=== PATIENT | male | born 1955 | race Caucasian/White ===

== ENCOUNTER 2017-10-31 18:59 | Emergency (ER) | payer OTHER, MEDICAID, SELFPAY ==
[2017-10-31 19:17] VITALS: BP 125/84; PULSE 91; RESP 18; TEMP 36.1; O2SAT 95; BMI 29.2
--- NOTE | 2017-10-31 20:04 | PC.NURSE ---
pt left w/o being seen from waiting room per registration
== END 2017-10-31 20:03 | disposition left against medical advice (07) ==
LOC: ED 19:05
PROVIDERS: Family Provider Family Medicine; PCP Family Medicine
DX: T16.9XXA Foreign body in ear, unspecified ear, initial encounter (principal)
CPT/HCPCS: 99281; 99282

== ENCOUNTER 2018-02-08 21:14 | Emergency (ER) | payer OTHER, MEDICAID, SELFPAY ==
[2018-02-08 21:16] VITALS: BP 145/83; PULSE 103; RESP 18; TEMP 37.1; O2SAT 96
== END 2018-02-08 22:03 | disposition left against medical advice (07) ==
PROVIDERS: Family Provider Family Medicine; PCP Family Medicine
DX: M79.645 Pain in left finger(s) (principal)
CPT/HCPCS: 99281; 99282

== ENCOUNTER 2018-02-09 12:36 | Emergency (ER) | payer OTHER, MEDICAID, SELFPAY ==
[2018-02-09 12:46] VITALS: BP 121/74; PULSE 86; RESP 20; TEMP 36.5; O2SAT 96
--- NOTE | 2018-02-09 14:55 | ED_ITS ---
HPI - Extremity Injury (Upper) General Chief Complaint: Extremity Injury, Upper Stated Complaint: LEFT HAND INDEX FINGER SWELLING Time Seen by Provider: 02/09/18 14:52 Source: patient Mode of arrival: ambulatory Limitations: no limitations History of Present Illness HPI narrative: Patient is 62-year-old male here for evaluation of possible infection of his left index finger. Patient states that all the symptoms started approximately 2 weeks ago. He states that it started after he was using the tool that was causing ?rapid movements ?and was resting on his finger. He states that it was not using high-pressure or ill or any other liquid. He states that he thought that it irritated his skin over the area. Has not tried anything for it. No fevers. Did come to the emergency department last evening but left without being seen. Return today for evaluation. Related Data Previous Rx's Medication Instructions Recorded albuterol sulfate [Ventolin HFA] 2 puff INHALATION Q4-6H PRN #6.7 11/01/17 gram sulfamethoxazole-trimethoprim 1 tab PO BID 7 Days #14 tab 02/09/18 Allergies Allergy/AdvReac Type Severity Reaction Status Date / Time No Known Drug Allergies Allergy Verified 10/31/17 19:19 Review of Systems Constitutional Denies fever(s) Musculoskeletal Comments: Swelling and redness and pain to his left index finger Integumentary/Breasts Comments: Swelling to left index finger, area on his left index finger that is white and black Neurologic Comments: Some tingling to the tip of his left index finger Hematologic/Lymphatic Denies easy bleeding and Denies easy bruising PFSH Medical History Renal stones (Acute) Surgical History No pertinent past surgical history (Acute) History of lithotripsy Status post tonsillectomy and adenoidectomy Social History Smoking Status: Former smoker Exam Initial Vital Signs Initial Vital Signs: Vital Signs Temperature 97.7 F 02/09/18 12:46 Pulse Rate 86 02/09/18 12:46 Respiratory Rate 20 02/09/18 12:46 Blood Pressure 121/74 H 02/09/18 12:46 Pulse Oximetry 96 02/09/18 12:46 Const General: cooperative, healthy appearing, comfortable, well developed, well groomed and No acute distress Orientation: alert, awake and oriented x3 Cardio Pulses: radial pulses present on the left Skin Other: Patient with a 1 cm area of white on the volar aspect of his left index finger at the crease of the PIP joint. Does have a small black area in the center of that white area. Does have some surrounding erythema that does not streak up proximal to the PIP joint. Neuro Other: Sensation intact to light touch left index finger distal Extrem Other: Patient with circumferential swelling from the MCP distal of his left index finger. Patient's finger is held in slight flexion however is able to extend without any problems. Flexion is limited somewhat secondary to the swelling. Patient does not have tenderness to palpation along the flexor tendons. Is only minimally tender over the PIP and the IP joints. Psych Appearance: grossly normal and well kempt Procedures Abscess I/D Site: hand (Left index finger) Side (if applicable): left Local Anesthetic: lidocaine 1% Amount of anesthesia used (mL): 2 Technique: incised with #11 blade Amount of fluid expressed (mL): 3 Irrigation: No Packing used?: none Complications: other (None) Course Orders Ordered: ED Orders 02/09/18 14:55 XR finger LT min 2V Stat 02/09/18 14:56 Blood Culture Stat 02/09/18 15:20 Basic Metabolic Panel Stat C-Reactive Protein Quant Stat Complete Blood Count AUTO DIFF Stat Erythrocyte Sedimentation Rate Stat Lactate (Lactic Acid) Stat Discontinued Medications Trimethoprim/Sulfamethoxazole (Bactrim Ds) 1 tab PO NOW ONE Stop: 02/09/18 15:55 Vital Signs - 8 hr 02/09/18 12:46 Temperature 97.7 F Pulse Rate 86 Respiratory Rate 20 Blood Pressure 121/74 H Pulse Oximetry 96 MDM - Extremity Injury (Upper) Lab Data Attestation: I reviewed the patient's lab results. Result diagrams: 02/09/18 15:20 02/09/18 15:20 Lab Results 02/09/18 02/09/18 02/09/18 Range/Units 15:20 15:20 15:20 WBC 9.4 (4.5-11.0) X10^3/uL RBC 4.83 (4.5-5.9) X10^6/uL Hgb 14.7 (13.5-17.5) g/dL Hct 43.3 (41-53) % MCV 89.6 (80-100) fL MCH 30.5 (26-34) PG MCHC 34.0 (30-36) % RDW 13.4 (11.6-14.8) % Plt Count 243 (150-400) X10^3/uL Neut % (Auto) 65.5 (50-75) % Lymph % (Auto) 22.8 L (25-40) % [place] % (Auto) 9.8 (3-14) % Eos % (Auto) 1.1 L (2-4) % Baso % (Auto) 0.8 (0-2) % Neut # (Auto) 6 L (6167-1243) /uL ESR 1 (0-15) MM/HR Sodium 139 (137-145) mmol/L Potassium 4.0 (3.4-5.1) mmol/L Chloride 104 (98-107) mmol/L Carbon Dioxide 26 (22-32) mmol/L BUN 24 H (9-20) mg/dL Creatinine 0.90 (0.66-1.25) mg/dL Estimated GFR > 60.0 (>60) mL/min BUN/Creatinine Ratio 26.7 H (6-22) Glucose 89 (80-110) mg/dL Lactate 0.6 L (0.7-2.1) mmol/L Calcium 9.1 (8.4-10.2) mg/dL C-Reactive Protein 0.9 (<1.0) mg/dL Imaging Data Xray finger: Radiologist's impression: PROCEDURE: XR FINGER LT MIN 2V INDICATIONS: Left index finger swelling after trauma TECHNIQUE: AP hand, 2 views of the index finger(s) acquired. COMPARISON: None. FINDINGS: Bones: Osteoarthritic changes are noted in second PIP and DIP joints. No gross acute fracture or dislocation is seen. No gross bone erosive changes are noted. Soft tissues: Soft tissue swelling around second PIP joint the IP joints are seen. IMPRESSION: No evidence of acute secondary to fracture or dislocation. Soft tissue swelling around second digit. Second PIP and DIP joint osteoarthritis. Dictated by: Uri Hussein M.D. on 02/09/2018 at 15:13 Approved by: Uri Hussein M.D. on 02/09/2018 at 15:15 MDM Narrative Medical decision making narrative: Patient looks very well. Does have circumferential swelling and finger held in slight flexion however does not have other signs of flexor tenosynovitis. ESR CRP and white blood cell count normal. Patient is neurovascularly intact. I was able to express a fair amount of purulent material from the white area on the volar aspect overlying the crease of the DIPJ joint. Patient was given a dose of Bactrim here in the ER. Will send home with a prescription for this medication. He was given return precautions. He expressed understanding and agreement with plan. Discharge Plan Departure Patient Disposition: Home, Self-Care Clinical Impression: Abscess Instructions: DI for Incision and Drainage of a Skin Abscess Activity Restrictions/Additional Instructions: You can shower like normal and wash your hands with soap and water. Take the antibiotics as directed call your primary care doctor for a follow-up. Return to the emergency department for any new symptoms, worsening pain, redness that it starts to extend at her hand, or any other new or concerning symptoms Prescriptions: New sulfamethoxazole-trimethoprim 800-160 mg tablet 1 tab PO BID 7 Days Qty: 14 RF: 0 No Action albuterol sulfate [Ventolin HFA] 90 mcg/actuation HFA aerosol inhaler 2 puff INHALATION Q4-6H PRN (Reason: shortness of breath or wheezing) Qty: 6.7 RF: 0
[2018-02-09 15:31] LABS: Hematocrit 43.3 % (41-53); Hemoglobin 14.7 g/dL (13.5-17.5); Mean Corpuscular Hemoglobin 30.5 PG (26-34); Mean Corpuscular Volume 89.6 fL (80-100); Red Blood Cell Count 4.83 X10^6/uL (4.5-5.9); White Blood Cell Count 9.4 X10^3/uL (4.5-11.0)
[2018-02-09 15:32] LABS: Add Manual Diff / Slide Review NO; Basophils Percent Auto 0.8 % (0-2); Eosinophils Percent Auto 1.1 % (2-4); Lymphocytes Percent Auto 22.8 % (25-40); Monocytes Percent Auto 9.8 % (3-14); Neutrophils Absolute Auto 6 /uL (3000-5900); Neutrophils Percent Auto 65.5 % (50-75); Platelet Count 243 X10^3/uL (150-400); Red Cell Distribution Width 13.4 % (11.6-14.8)
[2018-02-09 15:45] LABS: Lactate (Lactic Acid) 0.6 mmol/L (0.7-2.1)
[2018-02-09 15:49] LABS: BUN Creatinine Ratio 26.7 (6-22); Blood Urea Nitrogen 24 mg/dL (9-20); C-Reactive Protein Quant 0.9 mg/dL (<1.0); Calcium 9.1 mg/dL (8.4-10.2); Carbon Dioxide 26 mmol/L (22-32); Chloride 104 mmol/L (98-107); Estimated Glomerular Filt Rate > 60.0 mL/min (>60); Glucose 89 mg/dL (80-110); HEMOLYSIS < 15 (0-50); Sodium 139 mmol/L (137-145)
[2018-02-09 15:50] LABS: Erythrocyte Sedimentation Rate 1 MM/HR (0-15)
[2018-02-09 16:11] VITALS: BP 131/79; PULSE 67; RESP 18; O2SAT 98
[2018-02-09] MEDS: SULFA/TRIMETH 800/160 (DS) TABLET 1 TAB PO (16:13)
== END 2018-02-09 16:34 | disposition home or self-care (01) ==
PROVIDERS: Emergency Provider Emergency Medicine; Family Provider Family Medicine; PCP Family Medicine
DX: L02.512 Cutaneous abscess of left hand (principal)
CPT/HCPCS: 10060; 36415; 36591; 73140; 80048; 83605; 85025; 85651; 86140; 87040; 99282; 99284

== ENCOUNTER 2018-07-13 00:37 | Emergency (ER) | payer OTHER, MEDICAID, SELFPAY ==
--- NOTE | 2018-07-13 00:39 | DI.RAD.S_ITS ---
PROCEDURE: XR CHEST 1V INDICATIONS: chest pain TECHNIQUE: One view of the chest was acquired. COMPARISON: [facility], CHEST 2 VIEW, 08/22/2017, 17:58. [facility], CHEST 2 VIEW, 12/21/2016, 21:22. FINDINGS: Surgical changes and devices: None. Lungs and pleura: No pleural effusions or pneumothorax. Lungs are clear. Mediastinum: Mediastinal contours appear normal. Heart size is normal. Bones and chest wall: No suspicious bony lesions. Overlying soft tissues appear unremarkable. IMPRESSION: Normal for age, source of current chest pain symptoms is not seen. Dictated by: Prabhjot Galan M.D. on 07/13/2018 at 8:36 Approved by: Prabhjot Galan M.D. on 07/13/2018 at 8:37
--- NOTE | 2018-07-13 00:41 | ED_ITS ---
HPI - Chest Pain General Chief Complaint: Chest Pain Stated Complaint: woke with chest/back pain Time Seen by Provider: 07/13/18 00:38 Source: patient Mode of arrival: ambulatory Limitations: no limitations History of Present Illness HPI narrative: 63-year-old male here for evaluation of chest and back pain. He states that he woke up with pain in his back. Describes it as a sharp pain. No cough. No fevers. States that it is positional. It is worse when he lays on 1 side and better when he lays on the other. No trauma. He did state that he started to not feel very well after he moved piece of wood yesterday. He was concerned that potentially he had a broken rib. Related Data Previous Rx's Medication Instructions Recorded albuterol sulfate [Ventolin HFA] 2 puff INHALATION Q4-6H PRN #6.7 11/01/17 gram azithromycin 250 mg PO DAILY 4 Days #4 tab 07/13/18 Allergies Allergy/AdvReac Type Severity Reaction Status Date / Time No Known Drug Allergies Allergy Verified 10/31/17 19:19 Review of Systems Constitutional Denies fever(s) and Denies headache(s) ENT Ears, Nose, Mouth, and Throat: Denies dizziness and Denies headache(s) Cardiovascular Reports chest pain, Denies edema, Denies palpitations and Denies dyspnea Respiratory Denies dyspnea Gastrointestinal Gastrointestinal: Denies abdominal pain, Denies nausea and Denies vomiting Musculoskeletal Reports back pain, Denies myalgias and Denies arthralgias Integumentary/Breasts Denies rash Neurologic Denies confusion, Denies dizziness and Denies headache(s) Psychiatric Denies confusion Endocrine Denies palpitations Hematologic/Lymphatic Denies easy bleeding and Denies easy bruising [facility] Social History Smoking Status: Former smoker Exam Initial Vital Signs Initial Vital Signs: Vital Signs Temperature 100.6 F H 07/13/18 00:47 Pulse Rate 104 H 07/13/18 00:47 Respiratory Rate 21 07/13/18 00:47 Blood Pressure 154/87 H 07/13/18 00:47 Pulse Oximetry 93 07/13/18 00:47 Const General: cooperative, healthy appearing, well developed, well groomed and No acute distress Orientation: alert, awake and oriented x3 HENMT Head: normal to inspection and normocephalic Resp Effort & Inspection: normal respiratory effort Auscultation: clear to auscultation bilaterally Cardio Rate: tachycardic Rhythm: regular rhythm Pulses: radial pulses present Back/Spine/Pelvis Back: No CVA tenderness Cervical Spine: No cervical spinal tenderness Thoracic/Lumbar Spine: No thoraco-lumbar spasm, thoracic spinal tenderness and No lumbar spinal tenderness Skin Lesions: no lesions Rashes: no rashes Neuro General: alert, awake and oriented x3 Extrem General: normal to inspection and capillary refill normal Psych Appearance: grossly normal and well kempt Course Orders Ordered: ED Orders 07/13/18 00:39 XR chest 1V Stat 07/13/18 00:40 EKG-12 Lead Stat 07/13/18 00:55 B Type Natriuretic Peptide Stat Basic Metabolic Panel Stat Complete Blood Count AUTO DIFF Stat Partial Thromboplastin Time Stat Prothrombin Time INR Stat Troponin I Stat 07/13/18 01:02 CT angio chest abdomen Stat Discontinued Medications Aspirin (Aspirin Chew) 324 mg PO NOW ONE Stop: 07/13/18 00:39 Last Admin: 07/13/18 01:02 Dose: 324 mg Azithromycin (Zithromax) 500 mg PO NOW ONE Stop: 07/13/18 02:32 Last Admin: 07/13/18 02:43 Dose: 500 mg Sodium Chloride (Normal Saline 0.9%) 1,000 mls @ 1,000 mls/hr IV BOLUS ONE Stop: 07/13/18 01:54 Last Infusion: 07/13/18 02:10 Dose: 0 mls/hr Admin: 07/13/18 01:01 Dose: 1,000 mls/hr Morphine Sulfate (Morphine) 4 mg IV NOW ONE Stop: 07/13/18 00:54 Last Admin: 07/13/18 01:37 Dose: 4 mg Vital Signs - 8 hr 07/13/18 00:47 07/13/18 00:50 07/13/18 01:52 Temperature 100.6 F H Pulse Rate 104 H 91 H Respiratory Rate 21 27 H Blood Pressure 154/87 H Blood Pressure [Right Arm] 125/74 105/74 Pulse Oximetry 93 93 07/13/18 03:05 07/13/18 05:41 Temperature Pulse Rate 89 86 Respiratory Rate 22 Blood Pressure Blood Pressure [Right Arm] 129/70 Pulse Oximetry 94 95 MDM - Chest Pain Lab Data Attestation: I reviewed the patient's lab results. Result diagrams: 07/13/18 00:55 07/13/18 00:55 Lab Results 07/13/18 07/13/18 07/13/18 Range/Units 00:55 00:55 00:55 WBC 18.3 H (4.5-11.0) X10^3/uL RBC 4.69 (4.5-5.9) X10^6/uL Hgb 13.9 (13.5-17.5) g/dL Hct 42.1 (41-53) % MCV 89.7 (80-100) fL MCH 29.6 (26-34) PG MCHC 33.0 (30-36) % RDW 13.3 (11.6-14.8) % Plt Count 262 (150-400) X10^3/uL Neut % (Auto) 85.1 H (50-75) % Lymph % (Auto) 6.2 L (25-40) % [place] % (Auto) 8.0 (3-14) % Eos % (Auto) 0.2 L (2-4) % Baso % (Auto) 0.5 (0-2) % Neut # (Auto) 57584 H (2100-7011) /uL Lymph # (Auto) 1100 (2482-5797) /uL [place] # (Auto) 1500 H (0-900) /uL Eos # (Auto) 0 (0-450) /uL Baso # (Auto) 100 (0-100) /uL PT 13.4 H (10.1-12.7) SECONDS INR 1.2 (0.9-1.3) APTT 35 (26.4-36.2) SECONDS Sodium 140 (137-145) mmol/L Potassium 4.0 (3.4-5.1) mmol/L Chloride 102 (98-107) mmol/L Carbon Dioxide 28 (22-32) mmol/L BUN 20 (9-20) mg/dL Creatinine 1.00 (0.66-1.25) mg/dL Estimated GFR > 60.0 (>60) mL/min BUN/Creatinine Ratio 20.0 (6-22) Glucose 111 H (80-110) mg/dL Calcium 9.5 (8.4-10.2) mg/dL Troponin I < 0.012 (0.01-0.034) ng/mL B-Natriuretic Peptide < 100 (<100) Imaging Data CT angio chest abdomen: Radiologist's impression: CT scan of chest: No thoracic aortic aneurysm or dissection. No pneumothorax. Moderate infiltrate medial left lower no. Mild infiltrate right lower lobe. Mild peribronchial cuffing both lower lobes which can be seen with bronchitis or bronchiectasis. 4 mm pulmonary nodule posterior left upper lobe along the left major fissure image 25. Comparison any prior studies are follow-up recommended. CTA abdomen: No abdominal aortic aneurysm or dissection. Diverticulosis. No diverticulitis in visualized colon. 1.5 cm left adrenal mass. Comparison any prior studies follow-up recommended. ECG Data Attestation: I personally reviewed and interpreted this ECG as follows: Prior ECG tracings: not available for review Interpretation: Sinus rhythm Ventricular rate of 95 Normal axis Normal QRS Normal QTC No ST T wave changes MDM Narrative Medical decision making narrative: Patient not hypoxic. Does have a leukocytosis and CT scan findings concerning for pneumonia. He was given his 1st dose of antibiotics here in the emergency department. No signs of dissection. EKG is unremarkable. Troponin is negative. Given the CT scan finding for pneumonia and his leukocytosis I do suspect that this is the cause of his symptoms. When I informed him of the diagnosis he stated that he has not been feeling well for the past couple days. He was informed of the incidental findings of the lung nodule in the adrenal mass. He is informed that he needed to follow up with his primary care doctor regarding that. He was given pain medication here in the emergency department. Discharge Plan Departure Patient Disposition: Home Clinical Impression: Pneumonia, Incidental lung nodule, Adrenal mass, left Instructions: DI for Pneumonia -- Adult Activity Restrictions/Additional Instructions: When we did the CT scan today we have incidental findings of a lung nodule. It was 4 mm in size and located in the upper lobe of the left lung. Was also an incidental 1.5 cm left adrenal mass. Both of these findings are more than likely not connected with what brought you in to the emergency department however they do need follow-up. I would recommend you contact your primary care doctor for these. You do need to take all of your antibiotics as directed. Return to the emergency department for any new or worsening symptoms. You were given your 1st dose of antibiotics here in the emergency department. Fill this prescription and start taking them on Thursday07/14/18 Prescriptions: New azithromycin 250 mg tablet 250 mg PO DAILY 4 Days Qty: 4 RF: 0 No Action albuterol sulfate [Ventolin HFA] 90 mcg/actuation HFA aerosol inhaler 2 puff INHALATION Q4-6H PRN (Reason: shortness of breath or wheezing) Qty: 6.7 RF: 0
[2018-07-13 00:47] VITALS: BP 154/87; PULSE 104; RESP 21; TEMP 38.1; O2SAT 93; BMI 26.5
[2018-07-13 00:50] VITALS: BP 125/74
[2018-07-13] MEDS: SODIUM CHLORIDE 0.9% 1,000 ML 1000 ML IV (01:01)
[2018-07-13] MEDS: ASPIRIN 81 MG TAB 324 MG PO (01:02)
--- NOTE | 2018-07-13 01:02 | DI.CT.S_ITS ---
PROCEDURE: CT ANGIO CHEST ABDOMEN INDICATIONS: chest and back pain TECHNIQUE: Precontrast 5 mm thick sections acquired from the lung apices to the iliac crests. After the administration of intravenous contrast, 2.5 mm thick sections again acquired from the lung apices to the iliac crests. 10 mm maximum intensity projection (MIP) oblique sagittal and coronal reformats were then acquired. For radiation dose reduction, the following was used: automated exposure control. COMPARISON: [facility], CT, ABDOMEN/PELVIS WITH CONTRAST, 02/14/2013, 2:15. [facility], CR, XR CHEST 1V, 07/13/2018, 1:04. [facility], CR, CHEST 2 VIEW, 08/22/2017, 17:58. FINDINGS: Image quality: Excellent. AORTA: Intramural hematoma: Absent Maximum hematoma thickness: Not applicable Focal contrast enhancement: Intramural blood pool (< 2 mm neck or imperceptible communication with aortic lumen): Absent. Ulcer-like projection (broad communication with aortic lumen > 3 mm): Absent. Dissection: Absent Shahzad classification: Applicable Maximum aortic diameter: Normal. Periaortic hematoma: Absent. CHEST: Lungs and pleura: Pneumonia pattern medially behind the left hilum. Mild patchy pneumonia pattern right lower lobe. 8mm nodule near the area of pneumonia posterolateral right lower lobe seen on series 5 image 70. Incidental note also is made of a 4 mm nodule at the posterior border of the left upper lobe abutting the highest margin of the major fissure. No pleural effusions or pneumothorax. Central and peripheral airways are patent and normal in caliber. Mediastinum: Heart size is normal. No pericardial effusion. No mediastinal or hilar adenopathy by size criteria. Central pulmonary arteries are normal in size. Esophagus is normal in caliber. No hiatal hernias. Bones and chest wall: No axillary adenopathy by size criteria. Thyroid gland appears normal where well visualized. No suspicious bony lesions. No vertebral body compression fractures. ABDOMEN: Vasculature: Celiac trunk and mesenteric arteries are patent. Renal arteries are also patent. Solid organs: Liver is normal in size and enhancement. Gallbladder is partially contracted. Biliary system is non dilated. Pancreas enhances normally. Spleen is normal in size and enhancement. No adrenal nodules on the right but there is a 1.1 x 1.5 cm left adrenal nodule that is low in radiodensity, measuring approximately 20 Hounsfield units. Both kidneys are normal in size and enhancement, without hydronephrosis. Peritoneum and bowel: No free fluid or air. Bowel loops are normal in caliber and wall thickness. Nodes and vessels: No retroperitoneal or mesenteric adenopathy by size criteria. Inferior vena cava is normal in morphology. Bones: No suspicious bony lesions. No vertebral body compression fractures. Miscellaneous: No ventral hernias. IMPRESSION: 1. Pneumonia behind the left hilum. 2. Mild patchy pneumonia right lower lobe. 3. 2 lung nodules are found, 1 within the left upper lobe abutting the major fissure along its anterior border. The second is larger, right lower lobe, and measures up to 8 mm. These lesions can be further assessed in [address] scanning (lung nodule followup protocol). 4. Small left adrenal nodule, relatively low in radiodensity. This structure can be further assessed by the recommended followup chest CT scanning in 6 months. This adrenal nodule can be seen unchanged from the comparison study 02/14/13 and therefore is considered benign in origin. 5. No sign of aneurysm or dissection. Dictated by: Prabhjot Galan M.D. on 07/13/2018 at 9:21 Approved by: Prabhjot Galan M.D. on 07/13/2018 at 9:33
[2018-07-13 01:04] LABS: Add Manual Diff / Slide Review NO; Basophils Absolute Auto 100 /uL (0-100); Basophils Percent Auto 0.5 % (0-2); Eosinophils Absolute Auto 0 /uL (0-450); Eosinophils Percent Auto 0.2 % (2-4); Hematocrit 42.1 % (41-53); Hemoglobin 13.9 g/dL (13.5-17.5); Lymphocytes Absolute Auto 1100 /uL (1100-4500); Lymphocytes Percent Auto 6.2 % (25-40); Mean Corpuscular Hemoglobin 29.6 PG (26-34); Mean Corpuscular Volume 89.7 fL (80-100); Monocytes Absolute Auto 1500 /uL (0-900); Neutrophils Absolute Auto 15600 /uL (1500-7000); Neutrophils Percent Auto 85.1 % (50-75); Platelet Count 262 X10^3/uL (150-400); Red Blood Cell Count 4.69 X10^6/uL (4.5-5.9); Red Cell Distribution Width 13.3 % (11.6-14.8); White Blood Cell Count 18.3 X10^3/uL (4.5-11.0)
[2018-07-13 01:06] LABS: INR 1.2 (0.9-1.3); Prothrombin Time 13.4 SECONDS (10.1-12.7)
[2018-07-13 01:09] LABS: PTT Partial Thromboplastin Tim 35 SECONDS (26.4-36.2)
[2018-07-13 01:11] LABS: Blood Urea Nitrogen 20 mg/dL (9-20); Calcium 9.5 mg/dL (8.4-10.2); Carbon Dioxide 28 mmol/L (22-32); Chloride 102 mmol/L (98-107); Estimated Glomerular Filt Rate > 60.0 mL/min (>60); Glucose 111 mg/dL (80-110); HEMOLYSIS < 15 (0-50); Sodium 140 mmol/L (137-145)
[2018-07-13 01:26] LABS: B Type Natriuretic Peptide < 100 (<100); Troponin I < 0.012 ng/mL (0.01-0.034)
[2018-07-13] MEDS: MORPHINE 4 MG/ML INJ IV (01:37)
[2018-07-13 01:52] VITALS: BP 105/74; PULSE 91; RESP 27; O2SAT 93
[2018-07-13] MEDS: AZITHROMYCIN 250 MG TABLET 500 MG PO (02:43)
[2018-07-13 03:05] VITALS: BP 129/70; PULSE 89; RESP 22; O2SAT 94
[2018-07-13 05:41] VITALS: PULSE 86; O2SAT 95
--- NOTE | 2018-07-13 05:42 | PC.NURSE ---
Pt is being allowd to sleep and stay in room because he had morphine and no ride home. During sleep pt is very restless, calling out, flailing around, kicking, swearing, tossing and turning. he reports PTSD. He was getting tangled up in monitor wires. Provider ok'd removing all monitor leads except pulse ox.
--- NOTE | 2018-07-13 05:45 | PC.NURSE ---
Pt awoke and ambulated self to restroom. steady gate.
[2018-07-13 06:33] VITALS: BP 129/82; PULSE 91; RESP 21; O2SAT 94
== END 2018-07-13 06:35 | disposition home or self-care (01) ==
PROVIDERS: Emergency Provider Emergency Medicine; Family Provider Family Medicine; PCP Family Medicine
DX: J18.9 Pneumonia, unspecified organism (principal); R91.1 Solitary pulmonary nodule; E27.9 Disorder of adrenal gland, unspecified
CPT/HCPCS: 36591; 71045; 71275; 74175; 80048; 83880; 84484; 85025; 85610; 85730; 93005; 93010; 96361; 96374; 99283; 99285; J2270; Q9967

== ENCOUNTER 2019-11-10 13:52 | Emergency (ER) | payer OTHER, MEDICAID, SELFPAY ==
[2019-11-10 13:53] VITALS: BP 164/97; PULSE 80; RESP 15; TEMP 36.1; O2SAT 96; BMI 30.1
--- NOTE | 2019-11-10 14:01 | DI.RAD.S_ITS ---
PROCEDURE: XR LUMBAR SPINE 2-3V INDICATIONS: severe radicular pain TECHNIQUE: 3 views of the lumbar spine were acquired. COMPARISON: None. FINDINGS: Bones: 5 [id number] vertebrae are present. There is normal bony alignment. No vertebral body compression fractures. No suspicious bony lesions. Moderate disc and foraminal narrowing are noted at L5-S1. Soft tissues: Overlying bowel gas pattern is normal. No suspicious soft tissue calcifications. IMPRESSION: Degenerative changes most notable at L5-S1. Dictated by: Roslyn Meneses M.D. on 11/10/2019 at 14:33 Approved by: Roslyn Meneses M.D. on 11/10/2019 at 14:34
--- NOTE | 2019-11-10 14:01 | DI.RAD.S_ITS ---
PROCEDURE: XR HIP W PEL IF DONE RT 2V INDICATIONS: severe pain, no new injury TECHNIQUE: AP pelvis with lateral view(s) of the right hip(s). COMPARISON: [facility], CT, ABDOMEN/PELVIS WITH CONTRAST, 02/14/2013, 2:15. [facility], CR, KUB XRAY (1 VIEW ABDOMEN), 02/21/2013, 22:23. FINDINGS: Bones: No fractures or dislocations. Pelvic ring appears intact. No suspicious bony lesions. Minimal mild bilateral degenerative hip joint space narrowing. Soft tissues: The visualized bowel gas pattern is normal. No suspicious soft tissue calcifications. IMPRESSION: Minimal to mild degenerative changes. No visualized acute fracture or dislocation. However, if clinical concern and/or pain persist, short interval imaging followup in 7-10 days is recommended, as occult injury cannot be definitively excluded. Dictated by: Roslyn Meneses M.D. on 11/10/2019 at 14:33 Approved by: Roslyn Meneses M.D. on 11/10/2019 at 14:33
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
== END 2019-11-10 14:58 | disposition home or self-care (01) ==
PROVIDERS: Emergency Provider Emergency Medicine; Family Provider Family Medicine; PCP Family Medicine
DX: M54.16 Radiculopathy, lumbar region (principal)
CPT/HCPCS: 72100; 73502; 99283

== ENCOUNTER 2020-02-19 05:14 | Emergency (ER) | payer OTHER, MEDICAID, SELFPAY ==
[2020-02-19 07:01] VITALS: O2SAT 95
[2020-02-19 07:02] VITALS: BP 118/79; PULSE 82; O2SAT 95
[2020-02-19 07:05] VITALS: BP 118/79; PULSE 85; RESP 20; TEMP 36.5; O2SAT 96
--- NOTE | 2020-02-19 07:13 | ED.EXTPRO ---
HPI - Extremity Problem General Chief complaint: Extremity Problem,Nontraumatic Stated complaint: left elbow is swollen/painful Time Seen by Provider: 02/19/20 06:59 Source: patient Mode of arrival: Ambulatory Limitations: no limitations History of Present Illness HPI Narrative: Patient is a 64-year-old male who presents with left elbow swelling and redness. It has been ongoing for the last 4 days he thinks maybe it got stuck by a thorn. He is afebrile but it is quite swollen and red. Complaint: joint swelling Location: left and elbow Related Data Previous Rx's Medication Instructions Recorded albuterol sulfate [Ventolin HFA] 2 puff INHALATION Q4-6H PRN #6.7 11/01/17 gram cyclobenzaprine 10 mg PO TID PRN #14 tab 11/10/19 ketorolac 10 mg PO Q6H PRN #14 tab 11/10/19 prednisone 20 mg PO DAILY #5 tab 11/10/19 cephalexin [Keflex] 500 mg PO TID #21 cap 02/19/20 Allergies Allergy/AdvReac Type Severity Reaction Status Date / Time No Known Drug Allergies Allergy Verified 11/10/19 13:57 Review of Systems Review of Systems Narrative: GENERAL: Denies chills,fever HEENT: Denies throat pain RESPIRATORY: Denies dyspnea, cough, wheezing CARDIOVASCULAR: Denies chest pain, palpitations GASTROINTESTINAL: Denies nausea, vomiting MUSCULOSKELETAL: Denies extremity pain, injury SKIN: See HPI NEUROLOGIC: Denies weakness, dizziness, headache, numbness 8 point review of systems is negative except for those stated above and HPI Patient History Medical History Renal stones (Acute) Surgical History History of lithotripsy No pertinent past surgical history (Acute) Status post tonsillectomy and adenoidectomy Social History Smoking Status: Former smoker Smoking Status: Former smoker alcohol intake frequency: holidays/special occasions only Substance Use Type: does not use Exam Initial Vital Signs Initial Vital Signs: Vital Signs Pulse Oximetry 95 02/19/20 07:01 GENERAL: Well-appearing, well-nourished and in no acute distress. CARDIOVASCULAR: peripheral pulses in tact, cap refill <2 sec RESPIRATORY: No respiratory distress, speaks in full sentences without difficulty EXTREMITIES: Normal range of motion, no clubbing or edema. Neurovascularly intact Left elbow swelling and erythema no streaking NEUROLOGICAL: Cranial nerves II through XII grossly intact. Normal gait and speech. SKIN: Warm, dry, no petechiae, no rashes or lesions. Procedures Bursa Procedure Time Out Performed: Yes Side of body: left Site of Procedure: olecranon bursa XRAY Obtained: none Antisepsis Used: Chlorhexidine Local Anesthetic: lidocaine 1% and with epi Amount of anesthesia used (mL): 5 Fluid obtained (mL): 2 Fluid Type: bloody Patient Tolerated Procedure: Well Complications: none Course Orders Ordered: ED Orders 02/19/20 08:03 Body Fluid Culture Stat Discontinued Medications Lidocaine/Epinephrine (Xylocaine 1% W/Epi) 1 ml SUBCUT NOW ONE Stop: 02/19/20 07:14 Last Admin: 02/19/20 07:44 Dose: 1 ml Documented by: BTONER Vital Signs Vital signs: Vital Signs - 8 hr 02/19/20 07:01 02/19/20 07:02 02/19/20 07:05 Temperature 97.7 F Pulse Rate 82 85 Respiratory Rate 20 Blood Pressure 118/79 118/79 Pulse Oximetry 95 95 96 02/19/20 07:30 02/19/20 08:35 Temperature Pulse Rate 73 80 Respiratory Rate 18 Blood Pressure 130/78 Pulse Oximetry 97 96 MDM - Extremity (Nontraumatic) MDM Narrative Medical decision making narrative: It does appear to be more of a bursitis although it is erythematous clear fluid was drained and sent to lab for culture. He is started on antibiotics he thinks maybe was pricked by a thorn. No concern for septic joint at this time Discharge Plan Departure Patient Disposition: Home Clinical Impression: Bursitis of left elbow Qualifiers: Elbow bursitis location: olecranon bursitis Qualified Code(s): M70.22 - Olecranon bursitis, left elbow Discharge Date/Time: 02/19/20 08:35 Instructions: Bursitis Activity Restrictions/Additional Instructions: *You have been diagnosed with left elbow bursitis *What to do: This should start to improve over the next few days. Please monitor for any worsening redness *Continue to take medications as directed--> SENT TO [facility] [place] Ibuprofen 600mg every 6 hours if needed for pain Keflex 500 mg 3 times a day for 1 week *Follow up with your primary care provider in 2-3 days *Return to ER if you should have increasing redness inability to move elbow, numbness tingling in hands or any new, worsening or concerning symptoms Prescriptions: New cephalexin [Keflex] 500 mg capsule 500 mg PO TID Qty: 21 RF: 0 No Action albuterol sulfate [Ventolin HFA] 90 mcg/actuation HFA aerosol inhaler 2 puff INHALATION Q4-6H PRN (Reason: shortness of breath or wheezing) Qty: 6.7 RF: 0 cyclobenzaprine 10 mg tablet 10 mg PO TID PRN (Reason: muscle spasm) Qty: 14 RF: 0 prednisone 20 mg tablet 20 mg PO DAILY Qty: 5 RF: 0 ketorolac 10 mg tablet 10 mg PO Q6H PRN (Reason: pain) Qty: 14 RF: 0 Referrals: Jina Mock DO [Primary Care Provider] -
[2020-02-19 07:30] VITALS: PULSE 73; O2SAT 97
[2020-02-19] MEDS: LIDOCAINE 1% W/EPI 1 ML SUBCUT (07:44)
[2020-02-19 08:35] VITALS: BP 130/78; PULSE 80; RESP 18; O2SAT 96
== END 2020-02-19 08:35 | disposition home or self-care (01) ==
PROVIDERS: Emergency Provider Emergency Medicine; Family Provider Family Medicine; PCP Family Medicine
DX: M70.22 Olecranon bursitis, left elbow (principal)
CPT/HCPCS: 20610; 87070; 87075; 87077; 87147; 87186; 87205; 99282; 99283

== ENCOUNTER → 2020-04-09 14:46 | Outpatient (CLI) | payer OTHER, MEDICAID, SELFPAY ==
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
== END ==
PROVIDERS: Family Provider Family Medicine; PCP Family Medicine; Referring Provider Family Medicine; Visit Provider Family Medicine
DX: M79.604 Pain in right leg (principal); M25.551 Pain in right hip; M16.0 Bilateral primary osteoarthritis of hip
CPT/HCPCS: 73502; 73590

== ENCOUNTER → 2020-04-10 10:00 | Outpatient (CLI) | payer OTHER, MEDICAID, SELFPAY ==
[2020-04-10 11:49] LABS: Hemoglobin A1C% w Est Avg Glu 5.4 % (4.0-6.0)
[2020-04-10 11:55] LABS: Cholesterol 173 mg/dL (140-199); HDL Cholesterol 46 mg/dL (40-60); LDL Cholesterol Calculated 115 mg/dL (<100); Triglycerides 62 mg/dL (35-150)
== END ==
PROVIDERS: Family Provider Family Medicine; PCP Family Medicine; Referring Provider Family Medicine; Visit Provider Family Medicine
DX: E78.5 Hyperlipidemia, unspecified (principal)
CPT/HCPCS: 36415; 80061; 83036

== ENCOUNTER → 2020-04-13 08:49 | Outpatient (CLI) | payer OTHER, MEDICAID, SELFPAY ==
--- NOTE | 2020-04-13 08:50 | DI.RAD.S_ITS ---
PROCEDURE: XR LUMBAR SPINE 2-3V INDICATIONS: LOW BACK PAIN WITH SCIATICA TECHNIQUE: 3 views of the lumbar spine were acquired. COMPARISON: [facility], CR, XR LUMBAR SPINE 2-3V, 11/10/2019, 13:58. FINDINGS: Bones: 5 [id number] vertebrae are present. There is normal bony alignment. Loss of height noted in the L1 vertebral body compatible with compression fracture of indeterminate age. L1 compression fracture has occurred in the interval since prior study 10 in November 10, 2019. L1 compression fracture results in approximately 20% loss of normal vertebral body height. No suspicious bony lesions. Mild to moderate L4-L5 and L5-S1 degenerative disc disease. Mild L1-L2, L2-L3 and L3-L4 degenerative disc disease. Mild L4-L5 and L5-S1 facet arthropathy. Soft tissues: Overlying bowel gas pattern is normal. No suspicious soft tissue calcifications. IMPRESSION: 1. L1 compression fracture of indeterminate age. 2. Multilevel degenerate disease. 3. Multilevel facet arthropathy. Dictated by: Shanique Fuller MD, PhD on 04/13/2020 at 8:45 Approved by: hSanique Fuller MD, PhD on 04/13/2020 at 8:48
== END ==
PROVIDERS: Family Provider Family Medicine; PCP Family Medicine; Referring Provider Family Medicine; Visit Provider Family Medicine
DX: M51.16 Intervertebral disc disorders with radiculopathy, lumbar region (principal); M47.26 Other spondylosis with radiculopathy, lumbar region; M48.56XA Collapsed vertebra, not elsewhere classified, lumbar region, initial encounter for fracture
CPT/HCPCS: 72100

== ENCOUNTER 2020-04-30 14:12 | Emergency (ER) | payer OTHER, MEDICAID, SELFPAY ==
[2020-04-30 14:17] VITALS: BP 135/82; PULSE 96; RESP 22; TEMP 36.9; O2SAT 97
--- NOTE | 2020-04-30 16:16 | ED.SKABFB ---
HPI - Skin/Abscess/Foreign Bdy <ALEX Boone - Last Filed: 04/30/20 23:25> General Chief complaint: Skin/Abscess/Foreign Body Stated complaint: Bump/Infection On Left Elbow Time Seen by Provider: 04/30/20 15:55 Source: patient Mode of arrival: Ambulatory Limitations: no limitations History of Present Illness HPI narrative: This is a 65-year-old male, formal smoker, who presents to ED with left elbow, non dominant arm, swelling and discomfort for months. Patient denies fever, chills, nausea or vomiting. He was evaluated 2 months ago with similar symptoms and had drained synovial fluid from the elbow which showed Staphylococcus Aureus growth after his elbow was injured possibly from a thorn. Patient could not recall injuries or trauma this time but states his had swinging hammer. He works as a project construction assistant manager. Patient reports pain slightly radiated down to distal forearm. Patient denies drainage from the site. Patient had not followed up with orthopedic clinic as instructed from last visit. Related Data Previous Rx's Medication Instructions Recorded albuterol sulfate [Ventolin HFA] 2 puff INHALATION Q4-6H PRN #6.7 11/01/17 gram diclofenac sodium 1 % topical gel 2 gram TOP QID #100 gram 04/13/20 ketorolac 10 mg PO Q8H PRN #20 tab 04/30/20 gabapentin 100 mg capsule See Rx Instructions .ROUTE 05/04/20 .COMPLEX #60 cap Allergies Allergy/AdvReac Type Severity Reaction Status Date / Time No Known Drug Allergies Allergy Verified 04/09/20 14:12 Review of Systems <ALEX Boone - Last Filed: 04/30/20 23:25> Review of Systems Narrative: General: Denies fever, chills, fatigue, malaise, sweats. Respiratory: Denies dyspnea, cough, wheezing, hemoptysis, sputum. Cardiovascular: Denies chest pain, palpitations, orthopnea, edema. Gastrointestinal: Denies nausea, vomiting, abdominal pain, diarrhea, constipation, melena. Musculoskeletal: See HPI Skin: See HPI Neurologic: Denies weakness, headache, numbness, change in speech, confusion, seizures, incoordination. Patient History <ALEX Boone - Last Filed: 04/30/20 23:25> Medical History (Updated 04/30/20 @ 16:13 by ALEX Boone) Low back pain with sciatica (Chronic) Olecranon bursitis, left elbow (Chronic) Renal stones (Acute) Right hip pain (Acute) Right leg pain (Acute) Surgical History History of lithotripsy No pertinent past surgical history (Acute) Status post tonsillectomy and adenoidectomy Social History Smoking Status: Former smoker Smoking Status: Former smoker alcohol intake frequency: holidays/special occasions only Substance Use Type: does not use Exam <ALEX Boone - Last Filed: 04/30/20 23:25> Narrative Exam Narrative: General appearance: well developed, well nourished, in no acute distress. Head: normocephalic, atraumatic, no scalp lesions, non-tender. ENT: Hearing grossly intact. Airway patent. Neck/Thyroid: neck supple, full range of motion, no visible masses or meningeal signs. No JVD, non-tender without lymphadenopathy. Skin: Erythema and edema to left lateral elbow. No significant warmth to palpate. Warm and dry and appropriate color for ethnicity. Heart: no clubbing, no cyanosis, no edema. Lungs: Breathing even and unlabored. No stridor. No accessory muscles used. Able to speak in full sentences. Chest: normal shape and expansion. Abdomen: non-obese, non-distended. Neurologic: alert and oriented. 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 Psych: good eye contact, normal affect. Initial Vital Signs Initial Vital Signs: Vital Signs Temperature 98.5 F 04/30/20 14:17 Pulse Rate 96 H 04/30/20 14:17 Respiratory Rate 22 04/30/20 14:17 Blood Pressure 135/82 04/30/20 14:17 Pulse Oximetry 97 04/30/20 14:17 Extrem Left upper extremity: elbow/forearm Details: abnormal to inspection, tenderness, swelling, abnormal ROM Details: pain with active ROM, pain with passive ROM and with range as follows (Flexion and extension), warmth (Mild) Location: of the olecranon bursa, distal pulses intact and other (Dry scab on lateral elbow.); no lacerations, no ecchymosis and no crepitus <Karen Peck DO - Last Filed: 05/09/20 07:21> Initial Vital Signs Initial Vital Signs: Vital Signs Temperature 98.5 F 04/30/20 14:17 Pulse Rate 96 H 04/30/20 14:17 Respiratory Rate 22 04/30/20 14:17 Blood Pressure 135/82 04/30/20 14:17 Pulse Oximetry 97 04/30/20 14:17 Procedures <BLANE BooneP - Last Filed: 04/30/20 23:25> Orthopedic Splinting/Casting Injury #1: Side: left Upper Extremity Injury Location: elbow Upper Extremity Immobilizer: Buddy wrap Post splinting neuro exam: intact Post splinting vascular exam: intact Placed by: Nursing Scores <BLANE BooneP - Last Filed: 04/30/20 23:25> GCS [place] coma scale eye opening: Spontaneous [place] coma scale verbal response: Orientated [place] coma scale motor response: Obey commands [place] coma scale total score: 15 qSOFA Altered Mental Status (GCS <15): No Respiratory rate greater than/equal to 22: No Systolic blood pressure less than or equal to 100: No qSOFA Total: 0 0-1 Not High Risk 1-3 High risk Course <AELX Boone - Last Filed: 04/30/20 23:25> Orders Ordered: Discontinued Medications Ketorolac Tromethamine (Toradol) 30 mg IM NOW ONE Stop: 04/30/20 16:09 Last Admin: 04/30/20 16:22 Dose: 30 mg Documented by: BRITTANEY Vital Signs Vital signs: Vital Signs - 8 hr 04/30/20 14:17 Temperature 98.5 F Pulse Rate 96 H Respiratory Rate 22 Blood Pressure 135/82 Pulse Oximetry 97 <Karen Peck DO - Last Filed: 05/09/20 07:21> Orders Ordered: Discontinued Medications Ketorolac Tromethamine (Toradol) 30 mg IM NOW ONE Stop: 04/30/20 16:09 Last Admin: 04/30/20 16:22 Dose: 30 mg Documented by: BRITTANEY Vital Signs Vital signs: Vital Signs - 8 hr 04/30/20 14:17 Temperature 98.5 F Pulse Rate 96 H Respiratory Rate 22 Blood Pressure 135/82 Pulse Oximetry 97 MDM - Skin/Abscess/Foreign Bdy <ALEX Boone - Last Filed: 04/30/20 23:25> Differential Diagnosis Differential diagnosis: Likely other (Bursitis, infectious bursitis) Medical Records Attestation: I reviewed the patient's medical records. [facility] Narrative Medical decision making narrative: This is a 65-year-old male presents to ED with intermittent left elbow pain and swelling. Patient does not endorses constitutional symptoms. Left elbow is erythematous with mild warmth and tender to palpate. He is able to flex and extend affected arm reports some discomfort. Patient is requesting the affected elbow to be drained. Patient was he in January and treated with synovial fluid aspiration and had placed done antibiotic medication Keflex after initially injured from a puncture wound possibly from a thorn. This time patient could not recall injuries or trauma but using hammer. Patient is nonfebrile with vital signs within normal limits. Initially considered to treat for simple bursitis with anti-inflammatory and place affected elbow with buddy wrap. However, concerned for previous synovial fluid culture which showed Staphylococcus Aureus, concerned for infectious bursitis and will cover patient with antibiotic medication as well. Patient reinforced with the instruction to follow-up with orthopedist and he verbalized understanding. Return precautions were discussed with patient and he verbalized understanding in agreement with the treatment plan. Discharge Plan Departure Patient Disposition: Home Clinical Impression: Bursitis Qualifiers: Bursitis location: elbow Elbow bursitis location: unspecified Laterality: left Qualified Code(s): M70.32 - Other bursitis of elbow, left elbow Discharge Date/Time: 04/30/20 16:27 Instructions: DI for Elbow Bursitis Activity Restrictions/Additional Instructions: You have been diagnosed with [left elbow swelling likely from bursitis. Last time microbiology test from elbow synovial fluid shows staph]. What to do: *Take your medications as directed. Please take Ketorolac which is an anti-inflammatory medication up to 3 times a day as needed for swelling and pain. Please take this medication with food to decrease GI irritation. Please use Buddy wrap on affected elbow to prevent moving/flexing excessively. *Follow up with your primary care provider, [facility] orth[facility]ist in 2-3 days, call for an appointment. Let them know you were seen in the ED and that we asked you to be seen in follow up. *Return to ED if you have any new, worsening, or concerning symptoms, such as [fever, worsening pain, increasing redness/warmth/swelling, chest pain, breathing difficulty, or unable to tolerate fluids, tingling/numbness/weakness to affected distal hand or any acute concerns.]. Prescriptions: New ketorolac 10 mg tablet 10 mg PO Q8H PRN (Reason: pain) Qty: 20 RF: 0 No Action gabapentin 100 mg capsule See Rx Instructions .ROUTE .COMPLEX Qty: 60 RF: 0 diclofenac sodium [Voltaren Arthritis Pain] 1 % gel 2 gram TOP QID Qty: 100 RF: 1 albuterol sulfate [Ventolin HFA] 90 mcg/actuation HFA aerosol inhaler 2 puff INHALATION Q4-6H PRN (Reason: shortness of breath or wheezing) Qty: 6.7 RF: 0 Referrals: [facility] [Provider Group] Howard Bolden MD [Primary Care Provider] - <Karen Peck DO - Last Filed: 05/09/20 07:21> Cosign ED Attending Cosstephanieature Attestation: I was immediately available in the department for consultation. This documentation has been reviewed and I agree with assessment. Supervised by Karen Peck DO
[2020-04-30] MEDS: KETOROLAC 60 MG/2 ML VIAL 30 MG IM (16:22)
== END 2020-04-30 16:27 | disposition home or self-care (01) ==
PROVIDERS: Emergency Provider Nurse Practitioner Family; Family Provider Family Medicine; PCP Family Medicine
DX: M70.32 Other bursitis of elbow, left elbow (principal)
CPT/HCPCS: 96372; 99283; J1885

== ENCOUNTER 2020-10-18 21:14 | Emergency (ER) | payer OTHER, MEDICAID, SELFPAY ==
[2020-10-18 21:25] VITALS: BP 169/104; PULSE 77; RESP 24; TEMP 37; O2SAT 94; BMI 32.5
--- NOTE | 2020-10-18 21:38 | ED.GENADULT ---
HPI - General Adult General Chief complaint: Shortness of Breath/Dyspnea Stated complaint: difficulty breathing Time Seen by Provider: 10/18/20 21:17 Source: patient Mode of arrival: Ambulatory Limitations: no limitations History of Present Illness HPI narrative: Patient is a 65-year-old male here for evaluation of difficulty breathing and wheezing and productive cough. Has started over the past couple days. No fevers. He does have an albuterol inhaler and a nebulizer at home. He states he thinks that he has COPD but has never been diagnosed with this. He feels that he is COPD because he has had a significant smoking history. He quit smoking 2 and half years ago. He denies any chest pain. He did take his albuterol prior to arrival without much improvement. No recent travel. No fevers. Related Data Previous Rx's Medication Instructions Recorded albuterol sulfate [Ventolin HFA] 2 puff INHALATION Q4-6H PRN #6.7 11/01/17 gram diclofenac sodium 1 % topical gel 2 gram TOP QID #100 gram 04/13/20 ketorolac 10 mg PO Q8H PRN #20 tab 04/30/20 gabapentin 100 mg capsule See Rx Instructions .ROUTE 05/04/20 .COMPLEX #60 cap prednisone 20 mg PO DAILY 4 Days #4 tab 10/18/20 Allergies Allergy/AdvReac Type Severity Reaction Status Date / Time No Known Drug Allergies Allergy Verified 04/09/20 14:12 Review of Systems Constitutional Constitutional: Denies fever(s) Cardiovascular Cardiovascular: Denies chest pain and Reports dyspnea Respiratory Respiratory: Reports cough and Reports dyspnea Gastrointestinal Gastrointestinal: Denies abdominal pain, Denies nausea and Denies vomiting Genitourinary Genitourinary: Denies dysuria Genitourinary: Denies dysuria Musculoskeletal Musculoskeletal: Denies arthralgias and Denies myalgias Integumentary/Breasts Skin/Breast: Denies rash Neurologic Neurologic: Denies behavioral changes Psychiatric Psychiatric: Denies behavioral changes Hematologic/Lymphatic On Anticoagulants: No Allergic/Immunologic Allergic/Immunologic: Denies urticaria Patient History Medical History Low back pain with sciatica Olecranon bursitis, left elbow Renal stones Right hip pain Right leg pain Surgical History History of lithotripsy No pertinent past surgical history Status post tonsillectomy and adenoidectomy Social History Smoking Status: Former smoker Smoking Status: Former smoker alcohol intake frequency: holidays/special occasions only Substance Use Type: does not use Exam Initial Vital Signs Initial Vital Signs: Vital Signs Temperature 98.6 F 10/18/20 21:25 Pulse Rate 77 10/18/20 21:25 Respiratory Rate 24 10/18/20 21:25 Blood Pressure 169/104 H 10/18/20 21:25 Pulse Oximetry 94 10/18/20 21:25 Const General: cooperative, healthy appearing and comfortable Limitations: mental status not altered HENMT Head: normal to inspection and normocephalic Resp Effort & Inspection: normal respiratory effort Auscultation: clear to auscultation bilaterally Cardio Rate: regular rate Rhythm: regular rhythm GI Inspection: non-distended Palpation: soft Skin Lesions: no lesions Rashes: no rashes Neuro General: patient alert, patient awake and patient oriented x3 Cognition: normal cognition Extrem General: normal to inspection and capillary refill normal Psych Appearance: grossly normal and well kempt Course Orders Ordered: ED Orders 10/18/20 21:25 Consult to Respiratory Therapy Evaluate & Treat 10/18/20 21:40 EKG-12 Lead Stat 10/18/20 21:45 Complete Blood Count AUTO DIFF Stat Comprehensive Metabolic Panel Stat Lipase Stat NT-proBNP (BNP-Adult 18+) Stat Troponin & CK Cardiac Panel Stat 10/18/20 21:47 COVID19 -Nasal swab/Pre-Proc Stat 10/18/20 21:56 XR chest 1V Stat Discontinued Medications Albuterol/Ipratropium (Albuterol/Ipratropium 3 Ml Ampul) 3 ml INH NOW ONE Stop: 10/18/20 21:31 Last Admin: 10/18/20 21:53 Dose: 3 ml Documented by: SARAH Prednisone (Prednisone 20 Mg Tablet) 20 mg PO NOW ONE Stop: 10/18/20 22:35 Last Admin: 10/18/20 22:42 Dose: 20 mg Documented by: KARLIE Vital Signs Vital signs: Vital Signs - 8 hr 10/18/20 21:25 10/18/20 21:53 10/18/20 22:48 Temperature 98.6 F Pulse Rate 77 88 84 Respiratory Rate 24 20 20 Blood Pressure 169/104 H 160/122 H Pulse Oximetry 94 97 95 Medical Decision Making Lab Data Lab results reviewed: Yes I reviewed the patient's lab results. Result diagrams: 10/18/20 21:45 10/18/20 21:45 Labs: Lab Results 10/18/20 10/18/20 10/18/20 Range/Units 21:45 21:45 21:47 WBC 8.0 (4.5-11.0) X10^3/uL RBC 4.70 (4.5-5.9) X10^6/uL Hgb 14.0 (13.5-17.5) g/dL Hct 42.1 (41-53) % MCV 89.6 (80-100) fL MCH 29.9 (26-34) PG MCHC 33.4 (30-36) % RDW 14.0 (11.6-14.8) % Plt Count 246 (150-400) X10^3/uL Neut % (Auto) 60.1 (50-75) % Lymph % (Auto) 22.9 L (25-40) % [place] % (Auto) 11.9 (3-14) % Eos % (Auto) 4.0 (2-4) % Baso % (Auto) 1.1 (0-2) % Neut # (Auto) 4800 (9010-8198) /uL Lymph # (Auto) 1800 (8657-7904) /uL [place] # (Auto) 1000 H (0-900) /uL Eos # (Auto) 300 (0-450) /uL Baso # (Auto) 100 (0-100) /uL Sodium 144 (137-145) mmol/L Potassium 3.8 (3.4-5.1) mmol/L Chloride 110 H (98-107) mmol/L Carbon Dioxide 27 (22-32) mmol/L BUN 15 (9-20) mg/dL Creatinine 0.89 (0.66-1.25) mg/dL Estimated GFR > 60.0 (>60) mL/min BUN/Creatinine Ratio 16.9 (6-22) Glucose 105 (80-110) mg/dL Calcium 8.7 (8.4-10.2) mg/dL Total Bilirubin 0.3 (0.2-1.3) mg/dL AST 29 (17-59) IU/L ALT 21 (<50) IU/L Alkaline Phosphatase 63 (38-126) U/L Total Creatine Kinase 286 H (55-170) U/L CK-MB (CK-2) 5.43 H (<2.37) ng/mL CK-MB (CK-2) Rel Index 1.9 (1.5-5.0) % Troponin I < 0.012 (0.01-0.034) ng/mL NT-Pro-B Natriuret Pep 145 H (<125) pg/mL Total Protein 6.8 (6.3-8.2) g/dL Albumin 4.1 (3.5-5.0) g/dL Globulin 2.7 (1.7-4.1) g/dL Albumin/Globulin Ratio 1.5 (1.0-2.8) Lipase 57 (23-300) U/L SARS-CoV-2 (PCR) Negative (Negative) Imaging Data Chest x-ray: Radiologist's Impression: [address] [id number] ReportSigned Patient: Valente Hamilton WMR#: [id number]: 7Acct:[id number]/Sex: 65 / MDate of Service: 10/18/20Loc: EDAccession Number: [id number] Procedure: XR chest 1V Ordering Provider: Chong Hendricks D.O. PROCEDURE: XR CHEST 1V INDICATIONS: Short of breath TECHNIQUE: One view of the chest was acquired. COMPARISON: [facility], , XR CHEST 1V, 07/13/2018, 1:04. FINDINGS: Surgical changes and devices: None. Lungs and pleura: Lungs are hyperlucent but clear. No pleural effusions or pneumothorax. Mediastinum: Mediastinal contours appear normal. Heart size is normal. Bones and chest wall: No suspicious bony lesions. Overlying soft tissues appear unremarkable. IMPRESSION: Hyperlucent lungs suggesting emphysema. Dictated by: Mary Knox M.D. on 10/18/2020 at 22:08 Approved by: Mary Knox M.D. on 10/18/2020 at 22:08 ECG Data Attestation: I personally reviewed and interpreted this ECG as follows: Prior ECG tracings: not available for review Interpretation: Sinus rhythm Ventricular rate 80 Normal axis Normal QRS Normal QTC No ST T wave changes MDM Narrative Medical decision making narrative: Patient's labs are unremarkable. EKG unremarkable. On my evaluation I did not hear much wheezing however respiratory therapy who listened to him prior to my evaluation thought that he was ?tight? and also wheezing. He was given a abuse her on nebulizer here and he states that his symptoms did improve. He has not had any fevers. There is no pneumonia on the chest x-ray. He does not carry specific diagnosis of COPD. Will place him on steroids for the next couple days as this may help the inflammation he does have albuterol at home that he can use. He does have a primary doctor who is seen in the past and he was encouraged follow-up with his primary doctor. Low suspicion for ACS. He is not clinically in heart failure. He denies chest pain. He was given return precautions and follow-up instructions. He expressed understanding and agreement. Discharge Plan Departure Patient Disposition: Home Clinical Impression: Shortness of breath Instructions: DI for Shortness of Breath Activity Restrictions/Additional Instructions: I do recommend that you use the albuterol inhaler and nebulizer as needed. You do need to follow-up with your primary doctor because you need more workup for the high probability that she have COPD. Take the steroids as directed. Return to the emergency department for any new or worsening symptoms Prescriptions: New prednisone 20 mg tablet 20 mg PO DAILY 4 Days Qty: 4 RF: 0 No Action gabapentin 100 mg capsule See Rx Instructions .ROUTE .COMPLEX Qty: 60 RF: 0 diclofenac sodium [Voltaren Arthritis Pain] 1 % gel 2 gram TOP QID Qty: 100 RF: 1 albuterol sulfate [Ventolin HFA] 90 mcg/actuation HFA aerosol inhaler 2 puff INHALATION Q4-6H PRN (Reason: shortness of breath or wheezing) Qty: 6.7 RF: 0 ketorolac 10 mg tablet 10 mg PO Q8H PRN (Reason: pain) Qty: 20 RF: 0 Referrals: Howard Bolden MD [Primary Care Provider] -
[2020-10-18 21:53] VITALS: PULSE 88; RESP 20; O2SAT 97
[2020-10-18] MEDS: ALBUTEROL/IPRATROPIUM 3 ML AMPUL INH (21:53)
--- NOTE | 2020-10-18 21:56 | DI.RAD.S_ITS ---
PROCEDURE: XR CHEST 1V INDICATIONS: Short of breath TECHNIQUE: One view of the chest was acquired. COMPARISON: [facility], CR, XR CHEST 1V, 07/13/2018, 1:04. FINDINGS: Surgical changes and devices: None. Lungs and pleura: Lungs are hyperlucent but clear. No pleural effusions or pneumothorax. Mediastinum: Mediastinal contours appear normal. Heart size is normal. Bones and chest wall: No suspicious bony lesions. Overlying soft tissues appear unremarkable. IMPRESSION: Hyperlucent lungs suggesting emphysema. Dictated by: Mary Knox M.D. on 10/18/2020 at 22:08 Approved by: Mary Knox M.D. on 10/18/2020 at 22:08
[2020-10-18 21:57] LABS: Add Manual Diff / Slide Review NO; Basophils Absolute Auto 100 /uL (0-100); Basophils Percent Auto 1.1 % (0-2); Eosinophils Absolute Auto 300 /uL (0-450); Hematocrit 42.1 % (41-53); Lymphocytes Absolute Auto 1800 /uL (1100-4500); Lymphocytes Percent Auto 22.9 % (25-40); Mean Corpuscular HGB Conc 33.4 % (30-36); Mean Corpuscular Hemoglobin 29.9 PG (26-34); Mean Corpuscular Volume 89.6 fL (80-100); Monocytes Absolute Auto 1000 /uL (0-900); Monocytes Percent Auto 11.9 % (3-14); Neutrophils Absolute Auto 4800 /uL (1500-7000); Neutrophils Percent Auto 60.1 % (50-75); Platelet Count 246 X10^3/uL (150-400)
[2020-10-18 22:08] LABS: Alanine Aminotransferase 21 IU/L (<50); Albumin 4.1 g/dL (3.5-5.0); Albumin Globulin Ratio 1.5 (1.0-2.8); Alkaline Phosphatase 63 U/L (38-126); Aspartate Aminotransferase 29 IU/L (17-59); BUN Creatinine Ratio 16.9 (6-22); Bilirubin Total 0.3 mg/dL (0.2-1.3); Blood Urea Nitrogen 15 mg/dL (9-20); Calcium 8.7 mg/dL (8.4-10.2); Carbon Dioxide 27 mmol/L (22-32); Chloride 110 mmol/L (98-107); Creatine Kinase 286 U/L (55-170); Estimated Glomerular Filt Rate > 60.0 mL/min (>60); Globulin 2.7 g/dL (1.7-4.1); Glucose 105 mg/dL (80-110); HEMOLYSIS < 15 (0-50); Lipase 57 U/L (23-300); Potassium 3.8 mmol/L (3.4-5.1); Sodium 144 mmol/L (137-145); Total Protein 6.8 g/dL (6.3-8.2)
[2020-10-18 22:20] LABS: NT-proBNP (BNP-Adult 18+) 145 pg/mL (<125); Troponin I < 0.012 ng/mL (0.01-0.034)
[2020-10-18 22:23] LABS: CKMB % Relative Index 1.9 % (1.5-5.0); Creatine Kinase MB 5.43 ng/mL (<2.37)
[2020-10-18 22:26] LABS: COVID19 -Nasal RAPID Negative (Negative)
[2020-10-18] MEDS: predniSONE 20 MG TABLET PO (22:42)
[2020-10-18 22:48] VITALS: BP 160/122; PULSE 84; RESP 20; O2SAT 95
== END 2020-10-18 22:50 | disposition home or self-care (01) ==
PROVIDERS: Emergency Provider Emergency Medicine; Family Provider Family Medicine; PCP Family Medicine
DX: R06.02 Shortness of breath (principal); R05 Cough; Z20.822 Contact with and (suspected) exposure to COVID-19
CPT/HCPCS: 36415; 71045; 80053; 82550; 82553; 83690; 83880; 84484; 85025; 87635; 93005; 93010; 94640; 99284; C9803

== ENCOUNTER → 2021-08-30 10:34 | Outpatient (CLI) | payer OTHER, MEDICAID, SELFPAY ==
--- NOTE | 2021-08-30 10:35 | DI.RAD.S_ITS ---
PROCEDURE: XR CHEST 2V INDICATIONS: shortness of breath TECHNIQUE: 2 views of the chest were acquired. COMPARISON: [facility], , XR CHEST 1V, 10/18/2020, 21:46. FINDINGS: Surgical changes and devices: None. Lungs and pleura: Lungs are clear. No pleural effusions or pneumothorax. Mediastinum: Mediastinal contours are normal. Heart size is normal. Bones and chest wall: No suspicious bony abnormalities. Soft tissues appear unremarkable. IMPRESSION: No acute cardiopulmonary disease. Dictated by: Mary Knox M.D. on 08/30/2021 at 13:01 Approved by: Mary Knox M.D. on 08/30/2021 at 13:01
== END ==
PROVIDERS: Family Provider Family Medicine; PCP Family Medicine; Referring Provider Registered Nurse; Visit Provider Registered Nurse
DX: R06.02 Shortness of breath (principal)
CPT/HCPCS: 71046

== ENCOUNTER 2022-02-08 18:12 | Emergency (ER) | payer OTHER, MEDICAID, SELFPAY ==
[2022-02-08] VITALS (11 sets, daily range): BP systolic 131–166; BP diastolic 60–86; PULSE 85–112; RESP 18–38; TEMP 37.4; O2SAT 89–97
--- NOTE | 2022-02-08 18:52 | ED_ITS ---
HPI - General Adult General Chief complaint: Shortness of Breath/Dyspnea Stated complaint: cough x3 days Time Seen by Provider: 02/08/22 18:38 Source: patient Mode of arrival: Ambulatory History of Present Illness HPI narrative: 66-year-old gentleman who does not typically see doctors with extensive smoking history who recently stopped, with a history of morbid obesity, bilateral lower extremity edema presents with increasing shortness of breath over the last 3 days including exertional dyspnea, orthopnea with oxygen saturations 87% walking to the room, increasing wheeze, productive cough denies fevers or headache. States that he has not yet had COVID and has not been vaccinated. He notes that he has been doing quite a bit of outdoor work over the last number of weeks with significant exposure to molds, dust and pollens. He has had increased lower extremity edema but denies palpitations. Related Data Previous Rx's Medication Instructions Recorded albuterol sulfate 90 mcg/actuation 2 puff inhalation Q4-6H PRN 11/01/17 aerosol inhaler (Ventolin HFA) shortness of breath or wheezing #6.7 grams diclofenac sodium 1 % topical gel 2 gram topical QID #100 grams 04/13/20 (Voltaren Arthritis Pain) ketorolac 10 mg tablet 10 mg PO Q8H PRN pain #20 tabs 04/30/20 gabapentin 100 mg capsule See Rx Instructions .Route 05/04/20 .COMPLEX #60 caps ipratropium bromide 17 2 puff inhalation QID COPD #12.9 10/25/20 mcg/actuation HFA aerosol inhaler grams (Atrovent HFA) cephalexin 500 mg capsule 500 mg PO QID #20 caps 10/17/21 furosemide 20 mg tablet 20 mg PO QAM #30 tabs 10/17/21 amoxicillin 875 mg-potassium 1 tab PO BID #20 tabs 02/08/22 clavulanate 125 mg tablet doxycycline hyclate 100 mg capsule 100 mg PO BID 10 days #20 caps 02/08/22 prednisone 20 mg tablet 20 mg PO DAILY #7 tabs 02/08/22 Allergies Allergy/AdvReac Type Severity Reaction Status Date / Time No Known Drug Allergies Allergy Verified 02/08/22 18:21 Review of Systems Review of Systems Narrative: Remainder of complete review of systems is otherwise unremarkable except for that included in the HPI. Patient History Medical History Bilateral leg pain Bilateral lower extremity edema Cellulitis Low back pain with sciatica Olecranon bursitis, left elbow Renal stones Right hip pain Right leg pain SOB (shortness of breath) Swelling of lower extremity Surgical History History of lithotripsy No pertinent past surgical history Status post tonsillectomy and adenoidectomy Social History Smoking Status: Former smoker Smoking Status: Former smoker alcohol intake frequency: holidays/special occasions only Substance Use Type: does not use Exam Initial Vital Signs Initial Vital Signs: Vital Signs Temperature 99.3 F 02/08/22 18:21 Pulse Rate 112 H 02/08/22 18:21 Respiratory Rate 28 H 02/08/22 18:21 Blood Pressure 166/85 H 02/08/22 18:21 Pulse Oximetry 90 L 02/08/22 18:21 Oxygen Delivery Method 02/08/22 18:21 General: Obese, able to speak in 4-5 word sentences, cooperative and appropriate with HEENT: Moist mucous membranes, normal sclera with reactive pupils, Neck: No JVD, supple Respiratory: Lungs with significant rhonchi in the left base with moderate wh eeze in all lung grace, no accessory muscle use Cardiac: Regular rate and rhythm no murmurs no bruits Abdomen: Soft, nontender, good bowel tones, no flank pain Skin: Warm and dry, no rashes. Chronic venous stasis changes. Neurologic: Grossly neurologically intact with no obvious asymmetries or abnormalities Extremities: No trauma, well perfused, 2+ lower extremity edema bilaterally Psych: Cooperative, appropriate insight and affect Course Orders Ordered: ED Orders 02/08/22 18:36 COVID19 -Nasal RAPID/Pre-Proc Stat 02/08/22 18:45 Complete Blood Count AUTO DIFF Stat Comprehensive Metabolic Panel Stat D Dimer Stat Lactate (Lactic Acid) Stat Magnesium Stat NT-proBNP (BNP-Adult 18+) Stat Procalcitonin Stat Troponin I Stat 02/08/22 19:04 XR chest 1V Stat 02/08/22 19:13 Respiratory Panel (Film Array) Stat 02/08/22 20:45 Blood Culture Stat Discontinued Medications Albuterol/Ipratropium (Albuterol/Ipratropium 3 Ml Ampul) 3 ml INH NOW ONE Stop: 02/08/22 19:04 Last Admin: 02/08/22 19:30 Dose: 3 ml Documented By: KRISTINA Methylprednisolone (Methylprednisolone 125 Mg/2 Ml Vial) 125 mg IV NOW ONE Stop: 02/08/22 19:04 Last Admin: 02/08/22 19:31 Dose: 125 mg Documented By: AT Vital Signs Vital signs: Vital Signs - 8 hr 02/08/22 18:21 02/08/22 19:30 02/08/22 18:34 Temperature 99.3 F Pulse Rate 112 H Respiratory Rate 28 H Blood Pressure 166/85 H 143/83 H Pulse Oximetry 90 L 94 Oxygen Delivery Method Room Air Nasal Cannula Oxygen Flow Rate 2 Fraction of Inspired Oxygen 28 02/08/22 18:34 02/08/22 19:00 02/08/22 19:30 Temperature Pulse Rate 106 H 101 H 95 H Respiratory Rate Blood Pressure Pulse Oximetry 89 L 93 97 Oxygen Delivery Method Nasal Cannula Oxygen Flow Rate 2 Fraction of Inspired Oxygen 02/08/22 19:41 02/08/22 19:41 02/08/22 20:00 Temperature Pulse Rate 88 Respiratory Rate 38 H Blood Pressure 134/82 131/60 Pulse Oximetry 93 Oxygen Delivery Method Oxygen Flow Rate Fraction of Inspired Oxygen 02/08/22 20:00 Temperature Pulse Rate 91 H Respiratory Rate 26 H Blood Pressure Pulse Oximetry 94 Oxygen Delivery Method Nasal Cannula Oxygen Flow Rate 2 Fraction of Inspired Oxygen Medical Decision Making Lab Data Result diagrams: 02/08/22 18:45 02/08/22 18:45 Labs: Lab Results 02/08/22 02/08/22 02/08/22 Range/Units 18:36 18:45 18:45 WBC 13.9 H (4.5-11.0) X10^3/uL RBC 4.72 (4.5-5.9) X10^6/uL Hgb 13.8 (13.5-17.5) g/dL Hct 42.2 (41-53) % MCV 89.4 (80-100) fL MCH 29.2 (26-34) PG MCHC 32.7 (30-36) % RDW 14.8 (11.6-14.8) % Plt Count 252 (150-400) X10^3/uL Neut % (Auto) 81.3 H (50-75) % Lymph % (Auto) 9.1 L (25-40) % [place] % (Auto) 8.3 (3-14) % Eos % (Auto) 0.8 L (2-4) % Baso % (Auto) 0.5 (0-2) % Neut # (Auto) 50805 H (5056-7130) /uL Lymph # (Auto) 1300 (1019-8387) /uL [place] # (Auto) 1100 H (0-900) /uL Eos # (Auto) 100 (0-450) /uL Baso # (Auto) 100 (0-100) /uL D-Dimer 659 H (<500) ng/ml Sodium (137-145) mmol/L Potassium (3.4-5.1) mmol/L Chloride (98-107) mmol/L Carbon Dioxide (22-32) mmol/L BUN (9-20) mg/dL Creatinine (0.66-1.25) mg/dL Estimated GFR (>60) mL/min BUN/Creatinine Ratio (6-22) Glucose (80-110) mg/dL Lactate (0.7-2.1) mmol/L Calcium (8.4-10.2) mg/dL Magnesium (1.6-2.3) mg/dL Total Bilirubin (0.2-1.3) mg/dL AST (17-59) IU/L ALT (<50) IU/L Alkaline Phosphatase (38-126) U/L Troponin I (0.01-0.034) ng/mL NT-Pro-B Natriuret Pep (<125) pg/mL Total Protein (6.3-8.2) g/dL Albumin (3.5-5.0) g/dL Globulin (1.7-4.1) g/dL Albumin/Globulin Ratio (1.0-2.8) Procalcitonin (<0.5) ng/mL Chlamy pneumoniae PCR (Not Detect) Adenovirus (PCR) (Not Detect) B. pertussis DNA (PCR) (Not Detecte) B.parapertussis DNA PCR (Not Detecte) Coronavirus OC43 (PCR) (Not Detect) Coronavirus HKU1 (PCR) (Not Detect) Coronavirus 229E (PCR) (Not Detect) SARS-CoV-2 (PCR) Negative (Negative) Coronavirus NL63 (PCR) (Not Detect) Human Metapneumovir PCR (Not Detect) Influenza Type A (PCR) (Not Detect) Influenza Type B (PCR) (Not Detect) M. pneumoniae (PCR) (Not Detect) Parainfluenza 1 (PCR) (Not Detect) Parainfluenza 2 (PCR) (Not Detect) Parainfluenza 3 (PCR) (Not Detect) Parainfluenza 4 (PCR) (Not Detect) RSV (PCR) (Not Detect) Entero/Rhino (PCR) (Not Detect) 02/08/22 02/08/22 02/08/22 Range/Units 18:45 18:45 18:45 WBC (4.5-11.0) X10^3/uL RBC (4.5-5.9) X10^6/uL Hgb (13.5-17.5) g/dL Hct (41-53) % MCV (80-100) fL MCH (26-34) PG MCHC (30-36) % RDW (11.6-14.8) % Plt Count (150-400) X10^3/uL Neut % (Auto) (50-75) % Lymph % (Auto) (25-40) % [place] % (Auto) (3-14) % Eos % (Auto) (2-4) % Baso % (Auto) (0-2) % Neut # (Auto) (9210-5819) /uL Lymph # (Auto) (0225-1967) /uL [place] # (Auto) (0-900) /uL Eos # (Auto) (0-450) /uL Baso # (Auto) (0-100) /uL D-Dimer (<500) ng/ml Sodium 140 (137-145) mmol/L Potassium 4.2 (3.4-5.1) mmol/L Chloride 107 (98-107) mmol/L Carbon Dioxide 27 (22-32) mmol/L BUN 17 (9-20) mg/dL Creatinine 1.02 (0.66-1.25) mg/dL Estimated GFR > 60 (>60) mL/min BUN/Creatinine Ratio 16.7 (6-22) Glucose 100 (80-110) mg/dL Lactate 0.7 (0.7-2.1) mmol/L Calcium 8.9 (8.4-10.2) mg/dL Magnesium 1.9 (1.6-2.3) mg/dL Total Bilirubin 0.7 (0.2-1.3) mg/dL AST 30 (17-59) IU/L ALT 26 (<50) IU/L Alkaline Phosphatase 61 (38-126) U/L Troponin I < 0.012 (0.01-0.034) ng/mL NT-Pro-B Natriuret Pep 177 H (<125) pg/mL Total Protein 7.4 (6.3-8.2) g/dL Albumin 4.3 (3.5-5.0) g/dL Globulin 3.1 (1.7-4.1) g/dL Albumin/Globulin Ratio 1.4 (1.0-2.8) Procalcitonin 0.11 (<0.5) ng/mL Chlamy pneumoniae PCR (Not Detect) Adenovirus (PCR) (Not Detect) B. pertussis DNA (PCR) (Not Detecte) B.parapertussis DNA PCR (Not Detecte) Coronavirus OC43 (PCR) (Not Detect) Coronavirus HKU1 (PCR) (Not Detect) Coronavirus 229E (PCR) (Not Detect) SARS-CoV-2 (PCR) (Negative) Coronavirus NL63 (PCR) (Not Detect) Human Metapneumovir PCR (Not Detect) Influenza Type A (PCR) (Not Detect) Influenza Type B (PCR) (Not Detect) M. pneumoniae (PCR) (Not Detect) Parainfluenza 1 (PCR) (Not Detect) Parainfluenza 2 (PCR) (Not Detect) Parainfluenza 3 (PCR) (Not Detect) Parainfluenza 4 (PCR) (Not Detect) RSV (PCR) (Not Detect) Entero/Rhino (PCR) (Not Detect) 02/08/22 Range/Units 19:13 WBC (4.5-11.0) X10^3/uL RBC (4.5-5.9) X10^6/uL Hgb (13.5-17.5) g/dL Hct (41-53) % MCV (80-100) fL MCH (26-34) PG MCHC (30-36) % RDW (11.6-14.8) % Plt Count (150-400) X10^3/uL Neut % (Auto) (50-75) % Lymph % (Auto) (25-40) % [place] % (Auto) (3-14) % Eos % (Auto) (2-4) % Baso % (Auto) (0-2) % Neut # (Auto) (0557-5933) /uL Lymph # (Auto) (9540-1058) /uL [place] # (Auto) (0-900) /uL Eos # (Auto) (0-450) /uL Baso # (Auto) (0-100) /uL D-Dimer (<500) ng/ml Sodium (137-145) mmol/L Potassium (3.4-5.1) mmol/L Chloride (98-107) mmol/L Carbon Dioxide (22-32) mmol/L BUN (9-20) mg/dL Creatinine (0.66-1.25) mg/dL Estimated GFR (>60) mL/min BUN/Creatinine Ratio (6-22) Glucose (80-110) mg/dL Lactate (0.7-2.1) mmol/L Calcium (8.4-10.2) mg/dL Magnesium (1.6-2.3) mg/dL Total Bilirubin (0.2-1.3) mg/dL AST (17-59) IU/L ALT (<50) IU/L Alkaline Phosphatase (38-126) U/L Troponin I (0.01-0.034) ng/mL NT-Pro-B Natriuret Pep (<125) pg/mL Total Protein (6.3-8.2) g/dL Albumin (3.5-5.0) g/dL Globulin (1.7-4.1) g/dL Albumin/Globulin Ratio (1.0-2.8) Procalcitonin (<0.5) ng/mL Chlamy pneumoniae PCR Not detected (Not Detect) Adenovirus (PCR) Not detected (Not Detect) B. pertussis DNA (PCR) Not detected (Not Detecte) B.parapertussis DNA PCR Not detected (Not Detecte) Coronavirus OC43 (PCR) Not detected (Not Detect) Coronavirus HKU1 (PCR) Not detected (Not Detect) Coronavirus 229E (PCR) Not detected (Not Detect) SARS-CoV-2 (PCR) Not detected (Negative) Coronavirus NL63 (PCR) Not detected (Not Detect) Human Metapneumovir PCR Not detected (Not Detect) Influenza Type A (PCR) Not detected (Not Detect) Influenza Type B (PCR) Not detected (Not Detect) M. pneumoniae (PCR) Not detected (Not Detect) Parainfluenza 1 (PCR) Not detected (Not Detect) Parainfluenza 2 (PCR) Not detected (Not Detect) Parainfluenza 3 (PCR) Not detected (Not Detect) Parainfluenza 4 (PCR) Not detected (Not Detect) RSV (PCR) Not detected (Not Detect) Entero/Rhino (PCR) Not detected (Not Detect) Imaging Data Chest x-ray: Radiologist's Impression: FINDINGS:? ? Surgical changes and devices:? None.? ? Lungs and pleura:? Ill-defined airspace opacities are seen in bilateral lower lung grace suggestive of small patchy infiltrates.? No pleural effusions or pneumothorax.? ? Mediastinum:? Mediastinal contours appear normal.? Heart size is normal.? ? Bones and chest wall:? No suspicious bony lesions.? Overlying soft tissues appear unremarkable.? ? IMPRESSION:? Small bilateral lower lobe patchy infiltrates.? No pleural effusion or pneumothorax. ? ? Dictated by: Uri Hussein M.D. on 02/08/2022 at 20:04 ? ? ECG Data Interpretation: Sinus rhythm at a rate of 101 Normal intervals, normal axis No acute ischemic changes MDM Narrative Medical decision making narrative: 66-year-old gentleman presents with increased coughing hypoxia and wheeze. He has a mild leukocytosis, clinical left lower lobe pneumonia with acute COPD exacerbation. He does not carry a formal diagnosis of COPD however has not seen any physicians to acquire said diagnosis. He does have a nebulizer at home that a friend gave him that he occasionally uses and finds it quite helpful. No evidence of acute coronary syndrome or STEMI, no congestive heart failure. His D-dimer corrects appropriately with age and I do not suspect pulmonary embolism. There is no evidence of sepsis. Discharge Plan Departure Patient Disposition: Home Clinical Impression: Bacterial pneumonia, Acute exacerbation of chronic obstructive pulmonary disease Instructions: DI for Chronic Obstructive Pulmonary Disease, DI for Pneumonia -- Adult Activity Restrictions/Additional Instructions: Thank you for coming in today You do in fact have a pneumonia in the left lower lobe. You have been given antibiotics to start your treatment in the emergency department but you need to complete 10 additional days of Augmentin and doxycycline. Prescriptions have been sent to [facility]. The wheezing is likely due to COPD which is exacerbated by the pneumonia. You have been given steroids in the emergency department in you need 7 additional days of prednisone. This too has been sent to [facility]. Please use your home nebulizer and DuoNeb solution 3 times a day and you can use it and it additional time if you are having significant coughing or wheezing Please schedule an appointment with your primary care doctor at [facility] for an ER follow-up If you find that you are getting worse or develop any new symptoms, please feel free to return to the emergency department for further evaluation. Prescriptions: New doxycycline hyclate 100 mg capsule 100 mg PO BID 10 Days Qty: 20 0RF amoxicillin-pot clavulanate 875-125 mg tablet 1 tab PO BID Qty: 20 0RF prednisone 20 mg tablet 20 mg PO DAILY Qty: 7 0RF No Action gabapentin 100 mg capsule See Rx Instructions .ROUTE .COMPLEX Qty: 60 0RF Dose Instruction: TAKE ONE CAPSULE BY MOUTH THREE TIMES DAILY NEEDED FOR LEG PAIN Rx Instructions: TAKE ONE CAPSULE BY MOUTH THREE TIMES DAILY NEEDED FOR LEG PAIN diclofenac sodium [Voltaren Arthritis Pain] 1 % gel 2 gram TOP QID Qty: 100 1RF Rx Instructions: apply to single elbow, wrist or hand; for hand includes palm/fingers/back of hand Atrovent HFA 17 mcg/actuation HFA aerosol inhaler 2 puff inhalation QID Qty: 12.9 2RF cephalexin 500 mg capsule 500 mg PO QID Qty: 20 0RF furosemide 20 mg tablet 20 mg PO QAM Qty: 30 5RF albuterol sulfate [Ventolin HFA] 90 mcg/actuation HFA aerosol inhaler 2 puff INHALATION Q4-6H PRN (Reason: shortness of breath or wheezing) Qty: 6.7 0RF Rx Instructions: administer with spacer ketorolac 10 mg tablet 10 mg PO Q8H PRN (Reason: pain) Qty: 20 0RF Referrals: Howard Bolden MD [Primary Care Provider] -
--- NOTE | 2022-02-08 19:04 | DI.RAD.S_ITS ---
PROCEDURE: XR CHEST 1V INDICATIONS: cough TECHNIQUE: One view of the chest was acquired. COMPARISON: [facility], CR, XR CHEST 2V, 08/30/2021, 10:37. FINDINGS: Surgical changes and devices: None. Lungs and pleura: Ill-defined airspace opacities are seen in bilateral lower lung grace suggestive of small patchy infiltrates. No pleural effusions or pneumothorax. Mediastinum: Mediastinal contours appear normal. Heart size is normal. Bones and chest wall: No suspicious bony lesions. Overlying soft tissues appear unremarkable. IMPRESSION: Small bilateral lower lobe patchy infiltrates. No pleural effusion or pneumothorax. Dictated by: Uri Hussein M.D. on 02/08/2022 at 20:04 Approved by: Uri Hussein M.D. on 02/08/2022 at 20:04
[2022-02-08 19:09] LABS: COVID19 -Nasal RAPID Negative (Negative)
[2022-02-08 19:16] LABS: Add Manual Diff / Slide Review NO; Basophils Absolute Auto 100 /uL (0-100); Basophils Percent Auto 0.5 % (0-2); Eosinophils Absolute Auto 100 /uL (0-450); Eosinophils Percent Auto 0.8 % (2-4); Hematocrit 42.2 % (41-53); Hemoglobin 13.8 g/dL (13.5-17.5); Lymphocytes Absolute Auto 1300 /uL (1100-4500); Lymphocytes Percent Auto 9.1 % (25-40); Mean Corpuscular HGB Conc 32.7 % (30-36); Mean Corpuscular Hemoglobin 29.2 PG (26-34); Mean Corpuscular Volume 89.4 fL (80-100); Monocytes Absolute Auto 1100 /uL (0-900); Monocytes Percent Auto 8.3 % (3-14); Neutrophils Absolute Auto 11300 /uL (1500-7000); Neutrophils Percent Auto 81.3 % (50-75); Platelet Count 252 X10^3/uL (150-400); Red Blood Cell Count 4.72 X10^6/uL (4.5-5.9); Red Cell Distribution Width 14.8 % (11.6-14.8); White Blood Cell Count 13.9 X10^3/uL (4.5-11.0)
[2022-02-08 19:21] LABS: Lactate (Lactic Acid) 0.7 mmol/L (0.7-2.1)
[2022-02-08 19:23] LABS: Alanine Aminotransferase 26 IU/L (<50); Albumin 4.3 g/dL (3.5-5.0); Albumin Globulin Ratio 1.4 (1.0-2.8); Alkaline Phosphatase 61 U/L (38-126); Aspartate Aminotransferase 30 IU/L (17-59); BUN Creatinine Ratio 16.7 (6-22); Bilirubin Total 0.7 mg/dL (0.2-1.3); Blood Urea Nitrogen 17 mg/dL (9-20); Calcium 8.9 mg/dL (8.4-10.2); Carbon Dioxide 27 mmol/L (22-32); Chloride 107 mmol/L (98-107); Estimated Glomerular Filt Rate > 60 mL/min (>60); Globulin 3.1 g/dL (1.7-4.1); Glucose 100 mg/dL (80-110); HEMOLYSIS 23 (0-50); Magnesium 1.9 mg/dL (1.6-2.3); Potassium 4.2 mmol/L (3.4-5.1); Sodium 140 mmol/L (137-145); Total Protein 7.4 g/dL (6.3-8.2)
[2022-02-08] MEDS: ALBUTEROL/IPRATROPIUM 3 ML AMPUL INH (19:30)
[2022-02-08 19:31] LABS: NT-proBNP (BNP-Adult 18+) 177 pg/mL (<125)
[2022-02-08] MEDS: methylPREDNISolone 125 MG/2 ML VIAL IV (19:31)
[2022-02-08 19:35] LABS: Troponin I < 0.012 ng/mL (0.01-0.034)
[2022-02-08 19:39] LABS: Procalcitonin 0.11 ng/mL (<0.5)
[2022-02-08 20:22] LABS: D Dimer 659 ng/ml (<500)
[2022-02-08 20:40] LABS: Adenovirus Not Detected (Not Detect); Coronavirus 229E Not Detected (Not Detect); Coronavirus NL 63 Not Detected (Not Detect); Coronavirus OC43 Not Detected (Not Detect); Human Metapneumovirus Not Detected (Not Detect); SARS- CoV-2 Not Detected (Not Detecte)
[2022-02-08 20:41] LABS: B. parapertussis Not Detected (Not Detecte); Bordetella pertussis Not Detected (Not Detecte); Chlamydophila pneumoniae Not Detected (Not Detect); Coronavirus HKU1 Not Detected (Not Detect); Human Rhinovirus/Enterovirus Not Detected (Not Detect); Influenza A Not Detected (Not Detect); Influenza B Not Detected (Not Detect); Mycoplasma pneumoniae Not Detected (Not Detect); Parainfluenza Virus 1 Not Detected (Not Detect); Parainfluenza Virus 2 Not Detected (Not Detect); Parainfluenza Virus 3 Not Detected (Not Detect); Parainfluenza Virus 4 Not Detected (Not Detect); Respiratory Syncytial Virus Not Detected (Not Detect)
[2022-02-08] MEDS: cefTRIAXone 2,000 MG in SODIUM CHLORIDE 0.9% 100 ML 200 MG IV (21:19)
--- NOTE | 2022-02-08 21:41 | PC.NURSE ---
Ceftriaxone 2000mg mixed in 10ml Sodium Chloride 0.9% and IV pushed over 4 minutes, per Dr. Wadsworth verbal order.
== END 2022-02-08 21:46 | disposition home or self-care (01) ==
PROVIDERS: Emergency Provider Emergency Medicine; Family Provider Family Medicine; PCP Family Medicine
DX: J15.9 Unspecified bacterial pneumonia (principal); J44.1 Chronic obstructive pulmonary disease with (acute) exacerbation; Z20.822 Contact with and (suspected) exposure to COVID-19
CPT/HCPCS: 36415; 71045; 80053; 83605; 83735; 83880; 84145; 84484; 85025; 85379; 87040; 87633; 87635; 93005; 94640; 96374; 96375; 99284; C9803; J0696; J2930

== ENCOUNTER 2022-06-10 13:58 | Emergency (ER) | payer OTHER, MEDICAID, SELFPAY ==
[2022-06-10 14:42] VITALS: BP 145/98; PULSE 80; RESP 16; TEMP 36.2; O2SAT 95; BMI 35.4
== END 2022-06-10 15:14 | disposition left against medical advice (07) ==
PROVIDERS: Emergency Provider Emergency Medicine; Family Provider Family Medicine; PCP Family Medicine
DX: R05.9 Cough, unspecified (principal)
CPT/HCPCS: 99281

== ENCOUNTER → 2022-08-18 12:27 | Outpatient (CLI) | payer MEDICARE, MEDICAID, SELFPAY ==
--- NOTE | 2022-08-22 19:28 | DI.NM.S_ITS ---
DATE OF SERVICE: 08/18/2022 PROCEDURE: Exercise perfusion study. INDICATION: Shortness of breath with underlying COPD, hypertension, chest discomfort. RADIOPHARMACEUTICAL: 25.7 millicurie technetium-99m Myoview IV was injected at stress and 25.2 millicurie technetium-99m Myoview IV was injected at rest. CARDIAC STRESS: The patient underwent exercise perfusion study under the supervision of an attending staff. He walked on modified Javi protocol for 6 minutes and 47 seconds, achieved maximum heart rate of 111 beats per minute, which was 72 percent of target heart rate. Resting blood pressure 128/78 mmHg and peak blood pressure 182/80 mmHg. His ability to walk on treadmill was limited by hip pain and dyspnea. Baseline rhythm was sinus. During stress, no convincing ischemic changes seen. No significant arrhythmias seen. RAW DATA: There is increased subdiaphragmatic activity. Diaphragmatic shadow seen. The patient's weight is 261 pounds. Resting and stress LV ejection fraction 73% percent. I do not see any obvious wall motion abnormalities. Resting end-diastolic volume 106 mL. Lung/heart ratio 0.26, which is within normal. TID ratio is abnormal which is 1.38. MYOCARDIAL PERFUSION SCAN: There are no stress prone images. Stress supine and resting supine images were compared to each other. There is a large size, moderate to severely decreased perfusion of inferior wall extending into the inferoapex without any significant reversibility. CONCLUSION: 1. This is an abnormal myocardial perfusion study due to abnormal transient ischemic dilatation, which is 1.38. There are no stress prone images. On the stress supine and resting supine predominantly fixed, large size, moderate to severely decreased perfusion of inferior wall and inferoseptum. In absence of prone images, cannot distinguish diaphragmatic tissue attenuation artifact versus old inferior and inferoseptal myocardial infarction, however on raw data, there is diaphragmatic shadow seen. Inferior wall and inferoseptal wall is moving well, which goes against the diagnosis of previous transmural myocardial infarction. Significantly diminished exercise tolerance with hip pain and dyspnea during exertion. 2. Submaximal exercise stress test. Achieved only 72 percent of target heart rate. 3. Transient ischemic dilatation usually suggests left main or multivessel coronary artery disease. 4. Hence, we will recommend interventional cardiology evaluation for possible left heart catheterization. Findings were reported to PCP. Valente Hamilton - BELINDA/jordyn/isaac doc#: [id number]/job#: [id number] dd: 08/22/2022 16:45:00 dt: 08/22/2022 18:46:00 DICTATING MD/COPIES TO: Manuel Almeida MD COPIES MNE: EZIO;
== END ==
PROVIDERS: Family Provider Family Medicine; PCP Family Medicine; Referring Provider Family Medicine; Visit Provider Family Medicine
DX: R94.39 Abnormal result of other cardiovascular function study (principal); R06.00 Dyspnea, unspecified; J44.9 Chronic obstructive pulmonary disease, unspecified; R06.02 Shortness of breath; I10 Essential (primary) hypertension; R07.89 Other chest pain
CPT/HCPCS: 78452; 93017; A9502

== ENCOUNTER 2023-05-29 13:57 | Emergency (ER) | payer MEDICARE, MEDICAID, SELFPAY ==
[2023-05-29 14:00] VITALS: BP 142/84; PULSE 82; RESP 16; TEMP 36.2; O2SAT 93
[2023-05-29 14:16] VITALS: PULSE 78
--- NOTE | 2023-05-29 14:22 | ED_ITS ---
HPI - Extremity Problem <Taty Lau PA-C - Last Filed: 05/29/23 14:26> General Chief complaint: Extremity Problem,Nontraumatic Stated complaint: pain in upper L/thigh Time Seen by Provider: 05/29/23 14:10 Source: patient Mode of arrival: Ambulatory History of Present Illness HPI Narrative: Patient is a 68-year-old male who presents with left posterior thigh pain x 2.5 days. He does not recall any specific injury or trauma that preceded this pain. It is worse when attempting to stand. It is better with walking. He has been taking a baby aspirin for pain control which is ineffective. He reports that ibuprofen is bad for you to take very much and so has not tried it. He has not used ice or heat. He denies fever or chills, back pain, numbness or tingling. Related Data Previous Rx's Medication Instructions Recorded albuterol sulfate 90 mcg/actuation 2 puff inhalation Q4-6H PRN 11/01/17 aerosol inhaler (Ventolin HFA) shortness of breath or wheezing #6.7 grams albuterol sulfate 90 mcg/actuation 2 puff inhalation Q6H PRN 06/13/22 aerosol inhaler shortness of breath or wheezing #8.5 grams tiotropium bromide 18 mcg capsule 1 cap inhalation DAILY #30 06/13/22 with inhalation device (Spiriva inhalations with HandiHaler) ipratropium 0.5 mg-albuterol 3 mg 3 ml inhalation BID #90 mL 07/14/22 (2.5 mg base)/3 mL nebulization soln cyclobenzaprine 5 mg tablet 5 mg PO TID PRN muscle spasm #10 05/29/23 tabs Allergies Allergy/AdvReac Type Severity Reaction Status Date / Time No Known Drug Allergies Allergy Verified 05/29/23 14:04 Review of Systems <Taty Lau PA-C - Last Filed: 05/29/23 14:26> Review of Systems ROS Unobtainable: All systems reviewed & are unremarkable except as noted in HPI and below Patient History <Taty Lau PA-C - Last Filed: 05/29/23 14:26> Medical History Bilateral lower extremity edema Cellulitis Bilateral leg pain Swelling of lower extremity SOB (shortness of breath) Olecranon bursitis, left elbow Low back pain with sciatica Right hip pain Right leg pain Renal stones Surgical History No pertinent past surgical history Status post tonsillectomy and adenoidectomy History of lithotripsy Social History Smoking Status: Former smoker Smoking Status: Former smoker alcohol intake frequency: holidays/special occasions only Substance Use Type: does not use Exam <Taty Lau PA-C - Last Filed: 05/29/23 14:26> Narrative Exam Narrative: GENERAL: 68 year old patient appears stated age. Well-developed patient, in no distress. NEURO: AOx3. HEAD: Atraumatic. Normocephalic. EYES: Pupils equal round and reactive. Extraocular motions intact. No scleral icterus. No injection or drainage. ENT: Nose without bleeding or purulent drainage. Airway patent. NECK: Trachea midline. Non tender RESPIRATORY: No distress or increased work of breathing EXTREMITIES: No tenderness of the left hip. Tenderness with palpation of the superior aspect of the posterior thigh just below the gluteal cleft. No fluctuance or evidence cellulitis. Patient ambulates independently. SKIN: No rash or erythema of visible areas Initial Vital Signs Initial Vital Signs: Vital Signs Temperature 97.2 F L 05/29/23 14:00 Pulse Rate 82 05/29/23 14:00 Respiratory Rate 16 05/29/23 14:00 Blood Pressure 142/84 H 05/29/23 14:00 Pulse Oximetry 93 05/29/23 14:00 Oxygen Delivery Method Room Air 05/29/23 14:00 <Chong Hendricks DO - Last Filed: 05/29/23 17:47> Initial Vital Signs Initial Vital Signs: Vital Signs Temperature 97.2 F L 05/29/23 14:00 Pulse Rate 82 05/29/23 14:00 Respiratory Rate 16 05/29/23 14:00 Blood Pressure 142/84 H 05/29/23 14:00 Pulse Oximetry 93 05/29/23 14:00 Oxygen Delivery Method Room Air 05/29/23 14:00 Course <Taty Lau PA-C - Last Filed: 05/29/23 14:26> Orders Ordered: Discontinued Medications Ketorolac Tromethamine (Ketorolac 30 Mg/Ml Vial) 30 mg IM NOW ONE Stop: 05/29/23 14:19 Last Admin: 05/29/23 14:26 Dose: 30 mg Documented By: AMV Vital Signs Vital signs: Vital Signs - 8 hr 05/29/23 14:00 05/29/23 14:16 Temperature 97.2 F L Pulse Rate 82 Pulse Rate [Left Dorsalis Pedis] 78 Respiratory Rate 16 Blood Pressure 142/84 H Pulse Oximetry 93 Oxygen Delivery Method Room Air <Chong Hendricks DO - Last Filed: 05/29/23 17:47> Orders Ordered: Discontinued Medications Ketorolac Tromethamine (Ketorolac 30 Mg/Ml Vial) 30 mg IM NOW ONE Stop: 05/29/23 14:19 Last Admin: 05/29/23 14:26 Dose: 30 mg Documented By: AMV Vital Signs Vital signs: Vital Signs - 8 hr 05/29/23 14:00 05/29/23 14:16 Temperature 97.2 F L Pulse Rate 82 Pulse Rate [Left Dorsalis Pedis] 78 Respiratory Rate 16 Blood Pressure 142/84 H Pulse Oximetry 93 Oxygen Delivery Method Room Air MDM - Extremity (Nontraumatic) <Taty Lau PA-C - Last Filed: 05/29/23 14:26> MDM Narrative Medical decision making narrative: Multiple etiologies for patient's symptoms considered including, but not limited to: Muscle strain, fracture, infection. History and exam consistent with muscle strain. Suggest rest, ice, stretching, NSAIDs. We will give Toradol today in ER and advised to use NSAIDs at home starting 12 hours from now. Patient requests a muscle relaxer for muscle spasm pain that occurs primarily when he is trying to sleep. Cyclobenzaprine prescribed. No evidence of bony injury or fracture, no x-ray indicated today. Patient's symptoms improved over duration of stay with above-stated therapies. Findings and discharge diagnosis discussed with patient/family followed by verbalization of understanding Return precautions discussed with patient/family whom verbalize understanding of diagnosis and plan Discharge Plan Departure Patient Disposition: Home Clinical Impression: Hamstring strain Qualifiers: Encounter type: initial encounter Laterality: left Qualified Code(s): S76.312A - Strain of muscle, fascia and tendon of the posterior muscle group at thigh level, left thigh, initial encounter Instructions: DI for Hamstring Strain Activity Restrictions/Additional Instructions: *You have been diagnosed with hamstring strain. I recommend taking ibuprofen 600 mg every 6-8 hours, applying ice or heat as it feels comfortable and gentle stretching including gentle walking. You were given a dose of Toradol in the emergency department which is like ibuprofen, so I do not take ibuprofen for 12 hours after the emergency department. This medication should help pain and inflammation. I have sent a prescription for muscle relaxers to your pharmacy, these can be useful for decreasing muscle spasm. Do not combine with other sedating medications or alcohol. Do not drive while taking the muscle relaxer medicine. If this pain does not resolve with 7-10 days of conservative therapy, please see your primary care provider for further evaluation. *What to do: *Please continue to take your regular medications as directed. x New medication prescriptions sent to your pharmacy: [facility] [ ] New medication written as a paper prescription [ ] No new medications given *Please follow up with your primary care provider in 2-3 days, call for an appointment. Let them know you were seen in the Emergency Department and that we ask that you be seen in follow up. We will electronically transmit a record of today's note if your PCP is in our system *If you do not have a primary care provider please contact the [facility] Resource line at [phone]. They will ask some questions about your medical history and help get you set up with a doctor in the community. *Return to Emergency Department if you should have any new, worsening or concerning symptoms, such as [fever greater than 101 F, shaking chills, worsening pain, persistent vomiting or other concerning symptoms]. Prescriptions: New cyclobenzaprine 5 mg tablet 5 mg PO TID PRN (Reason: muscle spasm) Qty: 10 0RF No Action ipratropium-albuterol 0.5 mg-3 mg(2.5 mg base)/3 mL solution for nebulization 3 ml inhalation BID Qty: 90 1RF albuterol sulfate 90 mcg/actuation HFA aerosol inhaler 2 puff inhalation Q6H PRN (Reason: shortness of breath or wheezing) Qty: 8.5 2RF Spiriva with HandiHaler 18 mcg capsule, w/inhalation device 1 cap inhalation DAILY Qty: 30 3RF Hold Instructions: requests nebulized controller Rx Instructions: puncture 1 cap using device; one dose = 2 inhalations albuterol sulfate [Ventolin HFA] 90 mcg/actuation HFA aerosol inhaler 2 puff INHALATION Q4-6H PRN (Reason: shortness of breath or wheezing) Qty: 6.7 0RF Rx Instructions: administer with spacer Referrals: Howard Bolden MD [Primary Care Provider] - Stand Alone Forms: Patient Portal/API ED Sign-out <Chong Hendricks DO - Last Filed: 05/29/23 17:47> Cosign ED Attending Cosignature Attestation: Dr Hendricks Co-Sign Statement: I was available for consultation during this patient's emergency department visit. This chart is signed by myself for administrative purposes only. I did not have direct contact with this patient during this visit. They were seen independently by the APC.
[2023-05-29] MEDS: KETOROLAC 30 MG/ML VIAL IM (14:26)
== END 2023-05-29 14:33 | disposition home or self-care (01) ==
PROVIDERS: Emergency Provider Physician Assistant; PCP Family Medicine
DX: S76.312A Strain of muscle, fascia and tendon of the posterior muscle group at thigh level, left thigh, initial encounter (principal)
CPT/HCPCS: 96372; 99283; J1885

== ENCOUNTER 2023-09-01 15:33 | Emergency (ER) | payer MEDICARE, MEDICAID, SELFPAY ==
[2023-09-01 16:12] VITALS: BP 125/82; PULSE 89; RESP 18; TEMP 36.9; O2SAT 96
== END 2023-09-01 17:15 | disposition left against medical advice (07) ==
PROVIDERS: Emergency Provider Emergency Medicine; PCP Family Medicine
CPT/HCPCS: 99281

== ENCOUNTER 2024-08-03 13:21 | Emergency (ER) | payer MEDICARE, MEDICAID, SELFPAY ==
[2024-08-03] VITALS (16 sets, daily range): BP systolic 96–142; BP diastolic 49–86; PULSE 63–75; RESP 16–37; TEMP 36.5; O2SAT 91–99
--- NOTE | 2024-08-03 13:36 | DI.RAD.S_ITS ---
PROCEDURE: XR CHEST 1V INDICATIONS: chest pain TECHNIQUE: One view of the chest was acquired. COMPARISON: [facility], CR, XR CHEST 1V, 02/08/2022, 19:17. FINDINGS: Surgical changes and devices: None. Lungs and pleura: Lungs are clear. No pleural effusions or pneumothorax. Mediastinum: Mediastinal contours appear normal. Heart size is normal. Bones and chest wall: No suspicious bony lesions. Overlying soft tissues appear unremarkable. IMPRESSION: No acute cardiopulmonary abnormality is seen. Dictated by: Murray Brennan M.D. on 08/03/2024 at 14:43 Approved by: Murray Brennan M.D. on 08/03/2024 at 14:43
--- NOTE | 2024-08-03 13:38 | EKG_ITS ---
[address] [address] Test Date: 2024-08-03 Pat Name: Valente Hamilton Department: Room: Gender: Male Licensed Mental Health Counselor: LIDA : 1955 Requested By: Order Number: [id number] Reading MD: Mynor Huntley Measurements Intervals [place] Rate: 67 P: 52 RI: 166 QRS: 15 QRSD: 82 T: 67 QT: 424 QTc: 448 Interpretive Statements Normal sinus rhythm Cannot rule out Anterior infarct , age undetermined Electronically Signed On 08-03-2024 23:46:10 PST by Mynor Huntley
[2024-08-03] MEDS: ASPIRIN 81 MG CHEW TAB 324 MG PO (13:51)
[2024-08-03 13:52] LABS: Add Manual Diff / Slide Review NO; Basophils Absolute Auto 100 /uL (0-100); Basophils Percent Auto 1.2 % (0-2); Eosinophils Absolute Auto 100 /uL (0-450); Eosinophils Percent Auto 2.6 % (2-4); Hematocrit 45.1 % (41-53); Hemoglobin 14.8 g/dL (13.5-17.5); Lymphocytes Absolute Auto 1600 /uL (1100-4500); Mean Corpuscular HGB Conc 32.8 % (30-36); Mean Corpuscular Hemoglobin 29.6 PG (26-34); Mean Corpuscular Volume 90.2 fL (80-100); Monocytes Absolute Auto 500 /uL (0-900); Monocytes Percent Auto 9.1 % (3-14); Neutrophils Absolute Auto 3500 /uL (1500-7000); Neutrophils Percent Auto 60.1 % (50-75); Platelet Count 235 X10^3/uL (150-400); Red Cell Distribution Width 14.1 % (11.6-14.8); White Blood Cell Count 5.8 X10^3/uL (4.5-11.0)
[2024-08-03 14:06] LABS: INR 1.1 (0.9-1.3); Prothrombin Time 12.5 SECONDS (9.4-12.5)
[2024-08-03 14:08] LABS: D Dimer 469 ng/ml (<500)
[2024-08-03 14:09] LABS: PTT Partial Thromboplastin Tim 35 SECONDS (25.1-36.5)
[2024-08-03 14:11] LABS: Alanine Aminotransferase 29 IU/L (<50); Albumin 4.3 g/dL (3.5-5.0); Albumin Globulin Ratio 1.6 (1.0-2.8); Alkaline Phosphatase 52 U/L (38-126); Aspartate Aminotransferase 33 IU/L (17-59); BUN Creatinine Ratio 22.8 (6-22); Bilirubin Total 0.7 mg/dL (0.2-1.3); Blood Urea Nitrogen 23 mg/dL (9-20); Calcium 8.9 mg/dL (8.4-10.2); Carbon Dioxide 27 mmol/L (22-32); Chloride 108 mmol/L (98-107); Creatine Kinase 173 U/L (55-170); Estimated Glomerular Filt Rate > 60 mL/min (>60); Globulin 2.7 g/dL (1.7-4.1); Glucose 103 mg/dL (80-110); HEMOLYSIS 26 (0-50); Lipase 53 U/L (23-300); Magnesium 2.2 mg/dL (1.6-2.3); Potassium 4.1 mmol/L (3.4-5.1); Sodium 142 mmol/L (137-145)
--- NOTE | 2024-08-03 14:19 | PC.NURSE ---
Addendum entered by Mynor Henning R.N. 08/03/24 14:23: Provider responded Okay I'm going to look at him soon. This RN placed patient blood pressure interval at every 5 minutes. Original Note: Patient blood pressure was taken automatically. This RN went in and repositioned cuff and got a new blood pressure of 112/56. Provider notified of moving blood pressure.
[2024-08-03 14:21] LABS: NT-proBNP (BNP-Adult 18+) 161 pg/mL (<125); Troponin I < 0.012 ng/mL (0.01-0.034)
--- NOTE | 2024-08-03 14:35 | ED.CHESTPAIN ---
HPI - Chest Pain General Chief Complaint: Chest Pain Stated Complaint: poss pneumonia Time Seen by Provider: 08/03/24 13:46 Source: patient Mode of arrival: Ambulatory Limitations: no limitations History of Present Illness HPI narrative: This is a 69-year-old man with a history of COPD and pneumonia presenting with left thoracic back pain and a cough. Says that these have been going on for 1 day. He has not noted any fever and the cough has been nonproductive. Reports that he feels like when he had pneumonia previously. Additionally, he says it when driving in his car he has been smelling exhaust fumes. He is concerned he might have carbon monoxide poisoning. He did do some heavy lifting recently and reports his right shoulder is also painful. Patient has previously been evaluated for possible ischemic heart disease. He smoked up until 4 years ago when he quit he has previously been seen by Cardiology I reviewed her note from March of 2023 and in July of 2023 he had a myocardial perfusion study that was felt to be abnormal but possibly diaphragmatic attenuation. Related Data Previous Rx's Medication Instructions Recorded albuterol sulfate 90 mcg/actuation 2 puff inhalation Q4-6H PRN 11/01/17 aerosol inhaler (Ventolin HFA) shortness of breath or wheezing #6.7 grams albuterol sulfate 90 mcg/actuation 2 puff inhalation Q6H PRN 06/13/22 aerosol inhaler shortness of breath or wheezing #8.5 grams tiotropium bromide 18 mcg capsule 1 cap inhalation DAILY #30 06/13/22 with inhalation device (Spiriva inhalations with HandiHaler) ipratropium 0.5 mg-albuterol 3 mg 3 ml inhalation BID #90 mL 07/14/22 (2.5 mg base)/3 mL nebulization soln cyclobenzaprine 5 mg tablet 5 mg PO TID PRN muscle spasm #10 05/29/23 tabs Allergies Allergy/AdvReac Type Severity Reaction Status Date / Time No Known Drug Allergies Allergy Verified 05/29/23 14:04 Patient History Medical History Bilateral lower extremity edema Cellulitis Bilateral leg pain Swelling of lower extremity SOB (shortness of breath) Olecranon bursitis, left elbow Low back pain with sciatica Right hip pain Right leg pain Renal stones Surgical History No pertinent past surgical history Status post tonsillectomy and adenoidectomy History of lithotripsy Social History Smoking Status: Former smoker Smoking Status: Former smoker alcohol intake frequency: holidays/special occasions only Exam Initial Vital Signs Initial Vital Signs: Vital Signs Temperature 97.7 F 08/03/24 13:24 Pulse Rate 68 08/03/24 13:24 Respiratory Rate 18 08/03/24 13:24 Blood Pressure 133/73 08/03/24 13:24 Pulse Oximetry 96 08/03/24 13:24 Oxygen Delivery Method Room Air 08/03/24 13:24 Normotensive on arrival than borderline hypotensive Const Other: Sleeping when initially encountered, seems to be a bit difficult to wake up. HENMT HENMT Other: Normocephalic atraumatic Resp Other: Speaking in full sentences, equal breath sounds wheezy throughout no rales Cardio Other: Regular rhythm rate no murmur rub or gallop GI Other: Abdomen is soft and nontender normal bowel sounds Course Orders Ordered: ED Orders 08/03/24 13:33 EKG-12 Lead Stat 08/03/24 13:36 XR chest 1V Stat 08/03/24 13:37 Complete Blood Count AUTO DIFF Stat Comprehensive Metabolic Panel Stat D Dimer Stat Lactate (Lactic Acid) Stat Lipase Stat Magnesium Stat NT-proBNP (BNP-Adult 18+) Stat PTT Partial Thromboplastin Avinash Stat Prothrombin Time INR Stat Troponin & CK Cardiac Panel Stat 08/03/24 14:33 Blood Culture Stat ABG [Arterial Blood Gas] STAT Discontinued Medications Albuterol/Ipratropium (Albuterol/Ipratropium 3 Ml Ampul) 3 ml INH NOW ONE Stop: 08/03/24 14:34 Last Admin: 08/03/24 15:01 Dose: 3 ml Documented By: DS Aspirin (Aspirin 81 Mg Chew Tab) 324 mg PO NOW ONE Stop: 08/03/24 13:37 Last Admin: 08/03/24 13:51 Dose: 324 mg Documented By: RB Vital Signs Vital signs: Vital Signs - 8 hr 08/03/24 13:24 08/03/24 13:33 08/03/24 13:34 Temperature 97.7 F Pulse Rate 68 71 Respiratory Rate 18 Blood Pressure 133/73 124/86 Pulse Oximetry 96 93 Oxygen Delivery Method Room Air 08/03/24 13:34 08/03/24 14:00 08/03/24 14:01 Temperature Pulse Rate 71 73 Respiratory Rate 18 Blood Pressure 142/69 H Pulse Oximetry 93 92 Oxygen Delivery Method 08/03/24 14:01 08/03/24 14:16 08/03/24 14:16 Temperature Pulse Rate 70 75 Respiratory Rate 16 Blood Pressure 97/49 L Pulse Oximetry 91 91 Oxygen Delivery Method 08/03/24 14:19 08/03/24 14:19 08/03/24 14:20 Temperature Pulse Rate 70 Respiratory Rate 26 H Blood Pressure 112/56 L 96/52 L Pulse Oximetry 91 Oxygen Delivery Method 08/03/24 14:20 08/03/24 14:25 08/03/24 14:25 Temperature Pulse Rate 70 70 Respiratory Rate 26 H 18 Blood Pressure 106/55 L Pulse Oximetry 91 91 Oxygen Delivery Method 08/03/24 14:30 08/03/24 14:31 08/03/24 14:31 Temperature Pulse Rate 73 72 Respiratory Rate 37 H 29 H Blood Pressure 103/52 L Pulse Oximetry 93 93 Oxygen Delivery Method 08/03/24 14:36 08/03/24 14:36 08/03/24 14:41 Temperature Pulse Rate 70 Respiratory Rate 33 H Blood Pressure 114/58 L 113/55 L Pulse Oximetry 92 Oxygen Delivery Method Room Air 08/03/24 14:41 08/03/24 15:00 08/03/24 15:02 Temperature Pulse Rate 72 67 67 Respiratory Rate 32 H 22 Blood Pressure Pulse Oximetry 94 99 91 Oxygen Delivery Method Room Air Room Air 08/03/24 15:30 Temperature Pulse Rate 63 Respiratory Rate Blood Pressure Pulse Oximetry 98 Oxygen Delivery Method MDM - Chest Pain Lab Data Lab results narrative: Normal white count, normal D-dimer, normal troponin chemistries are unremarkable. ABG is reassuring, lactic acid is normal, D-dimer and troponin are normal. 08/03/24 13:37 08/03/24 13:37 Labs: Lab Results 08/03/24 08/03/24 Range/Units 13:37 14:51 WBC 5.8 (4.5-11.0) X10^3/uL RBC 5.00 (4.5-5.9) X10^6/uL Hgb 14.8 (13.5-17.5) g/dL Hct 45.1 (41-53) % MCV 90.2 (80-100) fL MCH 29.6 (26-34) PG MCHC 32.8 (30-36) % RDW 14.1 (11.6-14.8) % Plt Count 235 (150-400) X10^3/uL Neut % (Auto) 60.1 (50-75) % Lymph % (Auto) 27.0 (25-40) % [place] % (Auto) 9.1 (3-14) % Eos % (Auto) 2.6 (2-4) % Baso % (Auto) 1.2 (0-2) % Neut # (Auto) 3500 (1069-5887) /uL Lymph # (Auto) 1600 (8350-8399) /uL [place] # (Auto) 500 (0-900) /uL Eos # (Auto) 100 (0-450) /uL Baso # (Auto) 100 (0-100) /uL PT 12.5 (9.4-12.5) SECONDS INR 1.1 (0.9-1.3) APTT 35 (25.1-36.5) SECONDS D-Dimer 469 (<500) ng/ml ABG Sample Site Left radial ABG pH 7.37 (7.35-7.45) ABG pCO2 49.9 H (35-45) mmHg ABG pO2 62 L (80-100) mmHg ABG HCO3 29 H (23-27) mmol/L ABG Total CO2 28 H (23-27) mmol/L ABG O2 Saturation 90 L (95-100) % ABG Base Excess 2.8 (-2-3) mmol/L Walt Test Positive FiO2 % 21 % % Sodium 142 (137-145) mmol/L Potassium 4.1 (3.4-5.1) mmol/L Chloride 108 H (98-107) mmol/L Carbon Dioxide 27 (22-32) mmol/L BUN 23 H (9-20) mg/dL Creatinine 1.01 (0.66-1.25) mg/dL Estimated GFR > 60 (>60) mL/min BUN/Creatinine Ratio 22.8 H (6-22) Glucose 103 (80-110) mg/dL Lactate 0.8 (0.7-2.1) mmol/L Calcium 8.9 (8.4-10.2) mg/dL Magnesium 2.2 (1.6-2.3) mg/dL Total Bilirubin 0.7 (0.2-1.3) mg/dL AST 33 (17-59) IU/L ALT 29 (<50) IU/L Alkaline Phosphatase 52 (38-126) U/L Total Creatine Kinase 173 H (55-170) U/L Troponin I < 0.012 (0.01-0.034) ng/mL NT-Pro-B Natriuret Pep 161 H (<125) pg/mL Total Protein 7.0 (6.3-8.2) g/dL Albumin 4.3 (3.5-5.0) g/dL Globulin 2.7 (1.7-4.1) g/dL Albumin/Globulin Ratio 1.6 (1.0-2.8) Lipase 53 (23-300) U/L Imaging Data Chest x-ray: My Impression: Right basilar infiltrate on my initial interpretation Radiologist's Impression: Radiology reports this is a negative chest ECG Data Interpretation: ECG normal sinus rhythm at [address] elevation possible old anterior infarct possible old inferior infarct MDM Narrative Medical decision making narrative: 69-year-old man with COPD complaining of thoracic back pain. This started with some heavy lifting. He has not having fevers he does not have a cough he does not have a definite infiltrate on his chest x-ray. He has not hypoxic he has not hypercapnic. Troponin is normal D-dimer is normal lactic acid is normal. I do not believe that his pain is related to a pneumonia pulmonary embolism cardiac ischemia or heart failure. Think it is safe for discharge with symptomatic care Discharge Plan Departure Patient Disposition: Home Clinical Impression: Acute chest wall pain Activity Restrictions/Additional Instructions: Emergency department workup today is reassuring. I think it is safe to go home. Continue with her albuterol at home as needed for wheezing. You can use Tylenol 650 mg up to 4 times a day as needed for pain. You can also use 400 mg of ibuprofen 3 times a day. Take this with food. Return to the emergency department if having increasing shortness of breath fevers or other acute symptoms. Follow up soon with the primary care provider. Prescriptions: No Action ipratropium-albuterol 0.5 mg-3 mg(2.5 mg base)/3 mL solution for nebulization 3 ml inhalation BID Qty: 90 1RF albuterol sulfate 90 mcg/actuation HFA aerosol inhaler 2 puff inhalation Q6H PRN (Reason: shortness of breath or wheezing) Qty: 8.5 2RF Spiriva with HandiHaler 18 mcg capsule, w/inhalation device 1 cap inhalation DAILY Qty: 30 3RF Hold Instructions: requests nebulized controller Rx Instructions: puncture 1 cap using device; one dose = 2 inhalations albuterol sulfate [Ventolin HFA] 90 mcg/actuation HFA aerosol inhaler 2 puff INHALATION Q4-6H PRN (Reason: shortness of breath or wheezing) Qty: 6.7 0RF Rx Instructions: administer with spacer cyclobenzaprine 5 mg tablet 5 mg PO TID PRN (Reason: muscle spasm) Qty: 10 0RF Referrals: Howard Bolden MD [Primary Care Provider] - Stand Alone Forms: Patient Portal/API/Survey
--- NOTE | 2024-08-03 14:46 | PC.NURSE ---
Provider placed duoneb and ABG order. This RN called respiratory therapy and they are currently in the room drawing their blood sample.
[2024-08-03 14:50] LABS: Lactate (Lactic Acid) 0.8 mmol/L (0.7-2.1)
[2024-08-03 14:55] LABS: Allen Test for ABG Passed? Positive; Base Excess ABG 2.8 mmol/L (-2-3); Blood Gas Collection Site Left Radial; HCO3 ABG 29 mmol/L (23-27); Oxygen Saturation ABG 90 % (95-100); PCO2 ABG 49.9 mmHg (35-45); PO2 ABG 62 mmHg (80-100); TCO2 ABG 28 mmol/L (23-27); pH ABG 7.37 (7.35-7.45)
[2024-08-03] MEDS: ALBUTEROL/IPRATROPIUM 3 ML AMPUL INH (15:01)
--- NOTE | 2024-08-03 15:57 | PC.NURSE ---
This RN entered patient room as the monitor was alarming. Upon entering the room patient had torn off all leads, removed blood pressure cuff and taken of pulse monitor. This RN asked if patient would allow this RN to replace vital monitoring equipment. Patient responded only if you want to get smacked. I just want to know if I have pneumonia and go. This RN informed provider and patient to remain calm and that we are working as hard as possible to help people as quickly as possible.
== END 2024-08-03 16:26 | disposition home or self-care (01) ==
PROVIDERS: Emergency Provider Emergency Medicine; PCP Family Medicine
DX: R07.89 Other chest pain (principal); M54.6 Pain in thoracic spine; R05.9 Cough, unspecified; J44.9 Chronic obstructive pulmonary disease, unspecified; Z87.891 Personal history of nicotine dependence; Z87.01 Personal history of pneumonia (recurrent)
CPT/HCPCS: 36415; 36600; 71045; 80053; 82550; 82805; 83605; 83690; 83735; 83880; 84484; 85025; 85379; 85610; 85730; 87040; 93005; 94640; 99284

== ENCOUNTER 2024-09-03 20:16 | Inpatient (IN) | payer MEDICARE, MEDICAID, SELFPAY ==
[2024-09-03 20:33] VITALS: BP 130/73; PULSE 90; RESP 18; TEMP 36.6; O2SAT 92; BMI 33.0
--- NOTE | 2024-09-03 20:38 | DI.RAD.S_ITS ---
PROCEDURE: XR ANKLE LT MIN 3V INDICATIONS: crush injury to ankle, deformity TECHNIQUE: 3 views of the ankle were acquired. COMPARISON: None. FINDINGS: Acute, comminuted bimalleolar and tibial plafond fractures with lateral ankle dislocation. No talar dome osteochondral defect. Slight dorsal offset of the talar head relative to the navicular on the lateral view. Irregular appearance of the anterior process of the calcaneus. IMPRESSION: Acute, comminuted bimalleolar and tibial plafond fracture-dislocation with possible additional fracture of the anterior process of the calcaneus with [place] fracture-dislocation. Dictated by: Jj Koehler M.D. on 09/03/2024 at 21:09 Approved by: Jj Koehler M.D. on 09/03/2024 at 21:13
[2024-09-03] MEDS: HYDROMORPHONE 0.5 MG INJ IV (21:49)
[2024-09-03 21:54] VITALS: BP 138/80; PULSE 81; O2SAT 94
[2024-09-03 22:00] VITALS: BP 122/72; PULSE 75; O2SAT 94
[2024-09-03 22:30] VITALS: BP 133/76; PULSE 71; O2SAT 91
[2024-09-03 23:00] VITALS: BP 154/75; PULSE 74; O2SAT 91
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
[2024-09-03 23:30] VITALS: BP 122/73; PULSE 73; RESP 20; O2SAT 95
[2024-09-04] VITALS (18 sets, daily range): BP systolic 107–146; BP diastolic 65–79; PULSE 70–92; RESP 13–41; TEMP 36–37.3; O2SAT 90–97; BMI 33.0
--- NOTE | 2024-09-04 00:46 | DI.RAD.S_ITS ---
PROCEDURE: XR ANKLE LT 2V INDICATIONS: post reduction TECHNIQUE: 2 views of the ankle were acquired. COMPARISON: [facility], CR, XR ANKLE LT MIN 3V, 09/03/2024, 20:47. FINDINGS: Overlying cast material limits evaluation. Re-identified bimalleolar fractures status post reduction, with near anatomic alignment of the ankle mortise. IMPRESSION: Status post reduction with near anatomic alignment of the ankle mortise. Dictated by: Jj Koehler M.D. on 09/04/2024 at 1:07 Approved by: Jj Koehler M.D. on 09/04/2024 at 1:09
[2024-09-04] MEDS: propofoL 200 MG/20 ML VIAL IV (00:47)
--- NOTE | 2024-09-04 01:05 | DI.CT.S_ITS ---
PROCEDURE: CT LE LT W CON INDICATIONS: preop ortho request, distal tib fib fractures thru foot TECHNIQUE: Noncontrast 3-mm axial sections acquired from the distal tibial shaft to the talar dome, with coronal and sagittal reformats.. COMPARISON: [facility], CR, XR ANKLE LT 2V, 09/04/2024, 0:42. [facility], CR, XR ANKLE LT MIN 3V, 09/03/2024, 20:47. FINDINGS: Image quality: Excellent. Bones: Acute, comminuted distal fibular Castillo C fracture (5/250; 6/124). Acute, comminuted medial malleolar fracture extending to the tibial plafond and posterior malleolus (5/229; 6/159-167). Chronic, ununited fracture at the tip of the medial malleolus (5/226). 0.6 cm lateral-posterior talar dome osteochondral defect (6/134; 5/244). No other acute fracture or dislocation, including at the anterior process of the calcaneus. Joints: Ankle mortise alignment is nearly anatomic. Intra-articular fracture fragments are present at the medial clear space (6/161) and posterior joint capsule (6/145). Muscles: Mild diffuse muscle atrophy. Tendons: Visualized flexor and extensor tendon contours are preserved. Achilles tendon contour is preserved. Vessels: No aneurysmal dilatation of the visualized vasculature. Other soft tissues: Diffuse soft tissue edema around the lower calf and the ankle. IMPRESSION: Acute, comminuted trimalleolar fracture status post casting with nearly anatomic ankle mortise alignment. Dictated by: Jj Koehler M.D. on 09/04/2024 at 1:49 Approved by: Jj Koehler M.D. on 09/04/2024 at 1:56
[2024-09-04] MEDS: HYDROMORPHONE 0.5 MG INJ IV ×2 (01:06→19:53)
[2024-09-04] MEDS: KETOROLAC 30 MG/ML VIAL 15 MG IV (01:19)
[2024-09-04] MEDS: HYDROCODONE/ACET 5/325 PREPACK 1 BOTTLE MISC (04:33)
--- NOTE | 2024-09-04 04:51 | PC.NURSE ---
pt refusing to try to walk on the crutches, attempting to get pt to call a ride so he can be discharged, pt yelling at staff stating I can't walk, I have a broke leg that is broke worse than normal, pt started pulling off the bp cuff and monitor, continues yelling at staff, uncooperative in an attempt to learn to walk on crutches
--- NOTE | 2024-09-04 06:04 | PC.NURSE ---
Pt is currently in [place] splint and CMS checks are completed.
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
[2024-09-04] MEDS: HYDROCODONE/ACET 5/325 TABLET 1 TAB PO ×2 (11:54→15:15)
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
--- NOTE | 2024-09-04 14:39 | DI.RAD.S_ITS ---
PROCEDURE: XR CHEST 1V INDICATIONS: short of breath TECHNIQUE: One view of the chest was acquired. COMPARISON: [facility], CR, XR CHEST 1V, 08/03/2024, 13:40. [facility], CR, XR CHEST 1V, 02/08/2022, 19:17. FINDINGS: Surgical changes and devices: None. Lungs and pleura: Lungs are clear. No pleural effusions or pneumothorax. Mediastinum: Mediastinal contours appear normal. Heart size is normal. Bones and chest wall: No suspicious bony lesions. Overlying soft tissues appear unremarkable. IMPRESSION: No acute cardiopulmonary abnormality is seen. Dictated by: Maddison Hernadez M.D. on 09/04/2024 at 14:34 Approved by: Maddison Hernadez M.D. on 09/04/2024 at 14:35
[2024-09-04 15:18] LABS: Alanine Aminotransferase 34 IU/L (<50); Albumin 3.9 g/dL (3.5-5.0); Albumin Globulin Ratio 1.6 (1.0-2.8); Alkaline Phosphatase 57 U/L (38-126); Aspartate Aminotransferase 30 IU/L (17-59); BUN Creatinine Ratio 18.9 (6-22); Bilirubin Total 0.6 mg/dL (0.2-1.3); Blood Urea Nitrogen 18 mg/dL (9-20); Calcium 8.4 mg/dL (8.4-10.2); Carbon Dioxide 29 mmol/L (22-32); Chloride 105 mmol/L (98-107); Estimated Glomerular Filt Rate > 60 mL/min (>60); Globulin 2.4 g/dL (1.7-4.1); Glucose 134 mg/dL (80-110); HEMOLYSIS < 15 (0-50); Potassium 4.2 mmol/L (3.4-5.1); Sodium 139 mmol/L (137-145); Total Protein 6.3 g/dL (6.3-8.2)
[2024-09-04 15:22] LABS: Add Manual Diff / Slide Review NO; Basophils Absolute Auto 0 /uL (0-100); Basophils Percent Auto 0.5 % (0-2); Eosinophils Absolute Auto 200 /uL (0-450); Eosinophils Percent Auto 1.7 % (2-4); Hemoglobin 14.3 g/dL (13.5-17.5); Lymphocytes Absolute Auto 1600 /uL (1100-4500); Mean Corpuscular HGB Conc 33.3 % (30-36); Mean Corpuscular Hemoglobin 29.9 PG (26-34); Mean Corpuscular Volume 89.8 fL (80-100); Monocytes Absolute Auto 900 /uL (0-900); Monocytes Percent Auto 9.8 % (3-14); Neutrophils Absolute Auto 6200 /uL (1500-7000); Platelet Count 201 X10^3/uL (150-400); Red Blood Cell Count 4.79 X10^6/uL (4.5-5.9); Red Cell Distribution Width 14.4 % (11.6-14.8); White Blood Cell Count 8.9 X10^3/uL (4.5-11.0)
--- NOTE | 2024-09-04 15:52 | PC.NURSE ---
Cap refill <2. Left lower extremity in splint. Pt able to move about in bed w/o assistance. Pt reports pain 8/10.
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
--- NOTE | 2024-09-04 19:18 | PC.NURSE ---
Pt admitted to hospital, bottle of take home medications Myrtle PP#4 returned to pharmacy.
[2024-09-04] MEDS: DOCUSATE 100 MG CAPSULE PO (20:53)
[2024-09-05] VITALS: BP 125/62; PULSE 77; RESP 16; TEMP 36.7; O2SAT 91
[2024-09-05 04:00] VITALS: BP 125/78; PULSE 73; RESP 16; TEMP 36.3; O2SAT 92
[2024-09-05 08:00] VITALS: BP 117/63; PULSE 78; RESP 17; TEMP 36.4; O2SAT 92
--- NOTE | 2024-09-05 08:40 | DI.ECHO.S_ITS ---
[place] +---------+ Hospital : : [address] : : [place] : : [id number] : : Phone: [phone] Echocardiogram Report + + :Name: JACK LLOYD Study Date: 09/05/2024 Height: 70 in : :Hospital ReadingLocation: Weight: 248 lb : : Gender: Male BSA: 2.3 m2 : :: 1955 Age: 69 yrs BP: 128/73 mmHg: :Reason For Study: DYSPNEA : :Ordering Physician: MARNI, : :TIARRA Biswas Performed By: Charmaine Thomas : :Referring: TIARRA GRIDER : + + Interpretation Summary The left ventricular cavity is small. The left ventricle is hyperdynamic. The ejection fraction is estimated to be 70-75%. There is mild aortic valve sclerosis. Procedure: A two-dimensional transthoracic echocardiogram with color flow and Doppler was performed. The study quality was technically difficult. There is no prior echocardiogram noted for this patient. A contrast injection of Definity was performed to improve assessment of LV function. Patient was scanned in a supine position awaiting pre-op clearance for left ankle surgery. The patient was in sinus rhythm with heart rates between 75-81 bpm during the exam. Left Ventricle: The left ventricular cavity is small. The left ventricle is hyperdynamic. The ejection fraction is estimated to be 70-75%. There are no focal wall motion abnormalities. Diastolic parameters suggest probable normal left ventricular diastolic function and normal filling pressures. Right Ventricle: The right ventricle is normal in size and function. Atria: The left atrial size is normal. Right atrial size is normal. There is no Doppler evidence for an interatrial shunt. Mitral Valve: The mitral valve leaflets appear mildly thickened, but open well. The mitral valve leaflets appear to open well. There is no mitral regurgitation noted. Aortic Valve: The aortic valve is trileaflet. There is mild aortic valve sclerosis. There is no aortic valve stenosis. No aortic regurgitation is present. Tricuspid Valve: The tricuspid valve leaflets are thin and pliable. There is trace tricuspid regurgitation. Pulmonary artery pressures cannot be estimated because of the lack of a measurable TR jet velocity. Pulmonic Valve: The pulmonic valve leaflets are thin and pliable; valve motion is normal. There is no pulmonic valvular regurgitation. Great Vessels: The aortic root is normal size. The ascending aorta could not be visualized. The IVC is of normal diameter and collapses greater than 50% with a sniff. This suggests a low right atrial pressure of 3 mm Hg. Pericardium/ Pleura There is no pericardial effusion. There is no pleural effusion. MMode/2D Measurements & Calculations LVIDd: 4.5 cm LVOT diam: 2.1 cm LVIDs: 3.1 cm Ao root diam: 3.2 cm FS: 30.2 % Ao Arch Diam (Prox Trans): 3.1 cm IVSd: 0.93 cm LVPWd: 0.88 cm LV billingsley. diameter/BSA (cm/m^2): 2.0 LV sys. diameter/BSA (cm/m^2): 1.4 LA A2 area: 18.5 cm2 RA long axis: 4.5 cm LA A4 area: 16.2 cm2 RA area: 12.5 cm2 LA length (vol): 4.8 cm RA vol: 29.5 ml LA vol: 53.6 ml RA : 12.9 ml/m2 LA vol index: 23.4 ml/m2 IVC diam: 1.7 cm RVD1 (basal): 4.0 cm RVD2 (mid): 3.2 cm TAPSE: 1.7 cm Doppler Measurements & Calculations Ao V2 max: 134.2 cm/sec LVOT Max Candelario: 85.8 cm/sec Ao V2 mean: 91.1 cm/sec LV V1 max P.9 mmHg Ao max P.2 mmHg LV V1 VTI: 14.7 cm Ao mean P.6 mmHg MERVAT(I,D): 2.5 cm2 Ao V2 VTI: 20.3 cm MERVAT(V,D): 2.2 cm2 sev ratio: 0.72 MERVAT indexed to BSA (cm^2/m^2): 1.1 MV E max candelario: 47.3 cm/sec PA V2 max: 99.0 cm/sec MV A max candelario: 38.8 cm/sec PA V2 mean: 68.8 cm/sec MV E/A: 1.2 PA mean P.1 mmHg Med Peak E' Candelario: 7.4 cm/sec PA pr(Accel): 22.5 mmHg E/E' med: 6.4 Lat Peak E' Candelario: 10.1 cm/sec E/E' lat: 4.7 E/e' average: 5.5 MV dec time: 0.26 sec SV(LVOT): 51.4 ml Electronically signed by: Caroline Carranza on Reading Physician:09/05/2024 04:19 PM
--- NOTE | 2024-09-05 08:41 | PC.NURSE ---
Addendum entered by Myra Alston R.N. 09/05/24 10:17: Patient given 0.5mg of iv dilaudid for pain to left ankle. ordered a stat Echo to be done prior to going to surgery. He is resting and denies discomfort. Original Note: Patient is alert and oriented x4, he is sleeping soundly at this time but wakes up easily. He has a splint with joesph wrap on his left ankle. Patient will be going to surgery sometime today and he has been npo since 0000. Voices no needs at this time.
[2024-09-05] MEDS: HYDROMORPHONE 0.5 MG INJ IV ×3 (09:16→22:13)
--- NOTE | 2024-09-05 10:10 | PT-IP ANOTE ---
Pt discussed in rounds and he is having left ankle surgery today. Will d/c PT order and please reorder post-op.
--- NOTE | 2024-09-05 11:40 | P.PN_ITS ---
Subjective Subjective Interval history: S: Good pain control. He was surgery at 4:00 p.m. today. Anesthesia has requested preoperative echo. He has a history of an abnormal echo with artifact versus inferior fixed defect. The patient was asked to have a coronary angiogram in the past but never followed up. Exam Vital Signs (past 8 hours): - 09/05/24 04:00 09/05/24 08:00 Temperature 97.4 F L 97.5 F L Pulse Rate 73 78 Respiratory Rate 16 17 Blood Pressure 125/78 117/63 Pulse Oximetry 92 92 Oxygen Flow Rate 0 0 Oxygen Delivery Method Room Air Oxygen Flow Rate 0 Narrative Exam Narrative: NAD, alert and oriented. Fluent speech. Lungs are clear, normal rate and effort. Heart is regular, no murmur gallop or rub. Abdomen is soft, non distended. Extremities are free of edema. Objective Labs 09/04/24 14:58 09/04/24 14:58 Labs: Laboratory Results - last 24 hr 09/04/24 14:58 WBC 8.9 RBC 4.79 Hgb 14.3 Hct 43.0 MCV 89.8 MCH 29.9 MCHC 33.3 RDW 14.4 Plt Count 201 Neut % (Auto) 70.0 Lymph % (Auto) 18.0 L [place] % (Auto) 9.8 Eos % (Auto) 1.7 L Baso % (Auto) 0.5 Neut # (Auto) 6200 Lymph # (Auto) 1600 [place] # (Auto) 900 Eos # (Auto) 200 Baso # (Auto) 0 Sodium 139 Potassium 4.2 Chloride 105 Carbon Dioxide 29 BUN 18 Creatinine 0.95 Estimated GFR > 60 BUN/Creatinine Ratio 18.9 Glucose 134 H Calcium 8.4 Total Bilirubin 0.6 AST 30 ALT 34 Alkaline Phosphatase 57 Total Protein 6.3 Albumin 3.9 Globulin 2.4 Albumin/Globulin Ratio 1.6 [facility] Medical History Bilateral lower extremity edema Cellulitis Bilateral leg pain Swelling of lower extremity SOB (shortness of breath) Olecranon bursitis, left elbow Low back pain with sciatica Right hip pain Right leg pain Renal stones Surgical History No pertinent past surgical history Status post tonsillectomy and adenoidectomy History of lithotripsy Social History household members: none Smoking Status: Former smoker alcohol intake: never Assessment & Plan Assessment & Plan narrative: 1. Right ankle fracture dislocation, status post closed reduction. Surgical repair anticipated per Orthopedics. 2. COPD. Appears stable at baseline, though limited with dyspnea with mild exertion. Continue routine inhaler. Obtain laboratory evaluation and chest x- ray. 3. History of hypertension. Appears controlled. Monitor off medication. 4. DVT prophylaxis: SCDs. 5. Code status: Full code. This is reviewed with the patient on admission. He has no surrogate decision makers. Plan: -management per Orthopedics, ORIF today. -ECHO and ECG today -RT consult for nebulizers PRN. -PT assessment. Time-Based Coding :: [TOTAL MINUTES] spent with patient and on the chart (including review of chart, obtaining history, exam, reviewing outside data, placing orders, documenting exam and treatment plan, and counseling patient) on [DATE]. Quality VTE Deep Vein Thrombosis/Pulmonary Embolism Present on Admission: No
--- NOTE | 2024-09-05 11:40 | EKG_ITS ---
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
[2024-09-05 12:00] VITALS: BP 128/73; PULSE 70; RESP 18; O2SAT 93
[2024-09-05 16:00] VITALS: BP 122/68; PULSE 77; RESP 17; TEMP 36.5; O2SAT 93
[2024-09-05 20:00] VITALS: BP 113/66; PULSE 84; RESP 20; TEMP 36.8; O2SAT 91
[2024-09-05] MEDS: DOCUSATE 100 MG CAPSULE PO (20:43)
[2024-09-05] MEDS: HYDROCODONE/ACET 5/325 TABLET 1 TAB PO (23:40)
[2024-09-06] VITALS (30 sets, daily range): BP systolic 98–177; BP diastolic 56–102; PULSE 83–104; RESP 10–97; TEMP 36.2–37.1; O2SAT 11–100; BMI 35.6
[2024-09-06] MEDS: HYDROMORPHONE 0.5 MG INJ IV ×2 (04:07→09:15)
[2024-09-06] MEDS: HYDROCODONE/ACET 5/325 TABLET 1 TAB PO (09:18)
--- NOTE | 2024-09-06 10:17 | OT.IPNOTE ---
Pt to have surgery today, therefore discharge OT eval orders.
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
--- NOTE | 2024-09-06 12:25 | PT-IP ANOTE ---
PT eval order received. pt scheduled to have sx this afternoon. will d/c PT eval at this time and will wait for new order post-op
--- NOTE | 2024-09-06 13:46 | PM.PREOP ---
Pre-operative Note Interval Note History & Physical reviewed/Exam performed by Physician: Yes Changes to H&P: No
[2024-09-06] MEDS: LACTATED RINGERS 1,000 ML 42 ML IV (16:24)
[2024-09-06] MEDS: ONDANSETRON 4 MG/2 ML INJ IV (16:28)
[2024-09-06] MEDS: ACETAMINOPHEN 325 MG TABLET 650 MG PO ×2 (16:29→22:41)
[2024-09-06] MEDS: CEFAZOLIN 2 GM/100 ML PREMIX 100 ML IV (17:13)
--- NOTE | 2024-09-06 17:34 | SUR.OPER ---
Supine on padded OR bed, head on pillow, arms secured on padded arm boards at <90 degrees abduction, legs uncrossed, safety belt at waist, tape over blanket over lower right leg, left leg draped free with gel bump under left buttock .
[2024-09-06] MEDS: BUPIVACAINE 0.5% (PF) 30 ML VIAL INJ (17:41)
[2024-09-06] MEDS: ALBUTEROL/IPRATROPIUM 3 ML AMPUL INH (20:02)
--- NOTE | 2024-09-06 20:23 | DI.RAD.S_ITS ---
PROCEDURE: XR CHEST 1V INDICATIONS: SOB TECHNIQUE: One view of the chest was acquired. COMPARISON: [facility], CR, XR CHEST 1V, 09/04/2024, 14:40. [facility], CR, XR CHEST 1V, 08/03/2024, 13:40. FINDINGS AND IMPRESSION: Low lung volumes. Mild interstitial prominence may represent edema or atypical infection. No dense consolidation or pleural effusion on this single view study. Heart size is at the upper limit of normal. Degenerative osseous changes. Dictated by: Jefferson Alvarado M.D. on 09/06/2024 at 20:44 Approved by: Jefferson Alvarado M.D. on 09/06/2024 at 20:45
[2024-09-06] MEDS: FUROSEMIDE 20 MG/2 ML VIAL IV (20:42)
--- NOTE | 2024-09-06 20:54 | EKG_ITS ---
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
--- NOTE | 2024-09-06 21:16 | PM.EVENT ---
Event Note Event Note (Rapid Response, Code, or fall): Anesthesia Provider, Sarah called me around 20:34 pm regarding this patient having acute on chronic resp failure with hypoxia and hypercarbia and requiring Bipap post op ( R ankle surgery done this afternoon) and pt in PACU. Chart reviewed : Pt has h/o Moderate COPD , however has not been compliant with his Albuterol inhaler. He had reported chronic MELENDEZ to admitting Provider, and no c/o CP, peripheral edema or Orthopnea No Echo in chart No known h/o CHF or Pulm Edema, PE, AK or Stroke. No h/o DM Pt was noted to have diminished BS in PACU during recovery and also somewhat somnolent, requiring 2-3 L Supp O2. Was tried on Bipap at 30% FiO2 ABG : ph : 7.36/ PCO2 55.2/ PO2 67 Bicarb 27 O2 sat 91.3% on bipap setting 06/05 at 30% FiO2 No wheezing reported. CXR , EKG, labs ordered Latter including Troponin, Pro BNP, CBC w/ diff, CMP, Lactate , and Pro samantha CXR: Low Lung volumes, mild Interstitial prominence edema vs atypical infection Has been afebrile , BPs stable , RR 20 Leukocytosis WBC at 15 K ( was normal yesterday) Pro BNP : 25 Troponin not elevated Pro samantha not elevated Lactate 1.l0 BUN mild up at 21 , creat up at 1.39 from normal values yesterday EKG : NSR HR 96, no acute Ischemic changes Pt gradually became more alert, and was refusing Bipap, was answereing questions appropriately per RT / and Nurse report. No CP, or Abd Pain, has a chronic persistent cough. No Hemoptysis. A/P : Acute on chronic resp Failure in patient with known COPD, post R ankle surgery a few hours ago. ABG indicates CO2 retention compensating as ph 7.36 ( sec to COPD) as well as hypoxia , requiring supp O2/ Pt is waking up and does not want to continue wearing Bipap. Is continued on 2-3 L O2 via NC O2 sats at 92%. Shall empirically treat for possible HCAP/ vs Aspiration Pneumonia , given low Pro BNP and no crackles on Lung exam, likely fluid overload Bl cx Zosyn IV and Vancomycin IV ( 1 gram loading dose) , Pharmacy consult to dose Vancomycin Contact Isolation as MRSA nasal swab is + COPD: Former smoker. Moderate severity per history . Check PFTs. Continue Duonebs prn . MELENDEZ , r/o CAD etiology . Echo ordered , Consider Cardiac stress test as out patient/ Refer to out pt Pulm and Cardiology VIDYA : Recd Lasix 20 mg IV per Anesthesia in PACU, and pt has had U/O of 1675 NS IVF as ordered Strict Intake / Out put/ Daily weights Monitor Renal Function closely R ankle surgery Defer to Ortho ( on consult) Ancef discontinued while pt on Zosyn . Shall defer to Ortho restarting Ancef after Zosyn stopped. Plan of care discussed with pt's Nurse.
--- NOTE | 2024-09-06 21:30 | SUR.PHASEI ---
Patient transferred to ICU on BIPAP with RT and 2nd RN at bedside in stable condition.
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
--- NOTE | 2024-09-06 21:52 | RT ---
ABG done at 2029 while on BiPAP 12/8 back up rate 10, FiO2 30%: pH 7.33, PCO2 51.3, PO2 67, bicarb. 27.2, SaO2 91.3. Results reported to Sarah Levi CRNA at bedside at 2030.
[2024-09-06 22:06] LABS: Alanine Aminotransferase 31 IU/L (<50); Albumin 4.4 g/dL (3.5-5.0); Albumin Globulin Ratio 1.3 (1.0-2.8); Alkaline Phosphatase 70 U/L (38-126); Aspartate Aminotransferase 37 IU/L (17-59); BUN Creatinine Ratio 15.1 (6-22); Bilirubin Total 0.8 mg/dL (0.2-1.3); Blood Urea Nitrogen 21 mg/dL (9-20); Calcium 8.9 mg/dL (8.4-10.2); Carbon Dioxide 22 mmol/L (22-32); Chloride 102 mmol/L (98-107); Estimated Glomerular Filt Rate 56 mL/min (>60); Globulin 3.3 g/dL (1.7-4.1); Glucose 156 mg/dL (80-110); HEMOLYSIS 42 (0-50); Potassium 5.1 mmol/L (3.4-5.1); Sodium 135 mmol/L (137-145); Total Protein 7.7 g/dL (6.3-8.2)
[2024-09-06 22:15] LABS: NT-proBNP (BNP-Adult 18+) 25 pg/mL (<125)
[2024-09-06 22:17] LABS: Troponin I < 0.012 ng/mL (0.01-0.034)
[2024-09-06] MEDS: DOCUSATE 100 MG CAPSULE PO (22:41)
[2024-09-06] MEDS: ASPIRIN EC 81 MG TABLET PO (22:41)
[2024-09-06] MEDS: LACTATED RINGERS 1,000 ML 21 ML IV (22:44)
[2024-09-06 23:41] LABS: Base Excess VBG 3.5 mmol/L (0-4); HCO3 VBG 31 mmol/L (24-28); Oxygen Saturation VBG 78 % (70-75); PCO2 VBG 55.2 mmHg (45-50); PO2 VBG 46 mmHg (35-45); Total CO2 VBG 30 mmol/L (24-29); pH VBG 7.36 (7.33-7.43)
[2024-09-06 23:59] LABS: MRSA (Nasal) PCR DETECTED (Not Detect)
[2024-09-07] VITALS (10 sets, daily range): BP systolic 115–147; BP diastolic 56–73; PULSE 78–96; RESP 15–24; TEMP 36.1–37; O2SAT 92–96
[2024-09-07 00:09] LABS: Add Manual Diff / Slide Review NO; Basophils Absolute Auto 0 /uL (0-100); Basophils Percent Auto 0.1 % (0-2); Eosinophils Absolute Auto 0 /uL (0-450); Hematocrit 50.2 % (41-53); Hemoglobin 16.5 g/dL (13.5-17.5); Lymphocytes Absolute Auto 500 /uL (1100-4500); Lymphocytes Percent Auto 3.6 % (25-40); Mean Corpuscular HGB Conc 32.8 % (30-36); Mean Corpuscular Hemoglobin 29.6 PG (26-34); Mean Corpuscular Volume 90.1 fL (80-100); Monocytes Absolute Auto 200 /uL (0-900); Monocytes Percent Auto 1.4 % (3-14); Neutrophils Absolute Auto 14400 /uL (1500-7000); Neutrophils Percent Auto 94.9 % (50-75); Platelet Count 246 X10^3/uL (150-400); Red Blood Cell Count 5.57 X10^6/uL (4.5-5.9); Red Cell Distribution Width 13.9 % (11.6-14.8); White Blood Cell Count 15.1 X10^3/uL (4.5-11.0)
[2024-09-07 00:30] LABS: Procalcitonin 0.139 ng/mL (<0.5)
[2024-09-07] MEDS: CEFAZOLIN 2 GM/100 ML PREMIX 100 ML IV (01:08)
[2024-09-07] MEDS: OXYCODONE IR 5 MG TABLET PO ×2 (01:29→08:35)
[2024-09-07] MEDS: ONDANSETRON 4 MG/2 ML INJ IV (01:46)
[2024-09-07] MEDS: diphenhydrAMINE 50 MG/ML VIAL IV (02:26)
[2024-09-07] MEDS: SODIUM CHLORIDE 0.9% 500 ML 150 ML IV (03:09)
[2024-09-07] MEDS: VANCOMYCIN 2,000 MG/400 ML PIGGYBACK 200 MG IV (03:36)
[2024-09-07 03:37] LABS: Add Manual Diff / Slide Review NO; Basophils Absolute Auto 0 /uL (0-100); Basophils Percent Auto 0.3 % (0-2); Eosinophils Absolute Auto 0 /uL (0-450); Hematocrit 48.5 % (41-53); Hemoglobin 16.2 g/dL (13.5-17.5); Lymphocytes Absolute Auto 700 /uL (1100-4500); Lymphocytes Percent Auto 4.8 % (25-40); Mean Corpuscular HGB Conc 33.5 % (30-36); Mean Corpuscular Volume 89.5 fL (80-100); Monocytes Absolute Auto 1000 /uL (0-900); Monocytes Percent Auto 7.4 % (3-14); Neutrophils Absolute Auto 12300 /uL (1500-7000); Neutrophils Percent Auto 87.5 % (50-75); Platelet Count 234 X10^3/uL (150-400); Red Blood Cell Count 5.41 X10^6/uL (4.5-5.9); Red Cell Distribution Width 13.9 % (11.6-14.8); White Blood Cell Count 14.1 X10^3/uL (4.5-11.0)
[2024-09-07] MEDS: PIPERACILLIN/TAZO 4.5 GM in SODIUM CHLORIDE 0.9% 100 ML IV (03:50)
[2024-09-07 04:07] LABS: BUN Creatinine Ratio 18.8 (6-22); Blood Urea Nitrogen 26 mg/dL (9-20); Calcium 8.8 mg/dL (8.4-10.2); Carbon Dioxide 26 mmol/L (22-32); Chloride 99 mmol/L (98-107); Estimated Glomerular Filt Rate 56 mL/min (>60); Glucose 176 mg/dL (80-110); HEMOLYSIS 15 (0-50); Potassium 4.5 mmol/L (3.4-5.1); Sodium 136 mmol/L (137-145)
--- NOTE | 2024-09-07 06:15 | PC.NURSE ---
Night Note-Patient admitted to ICU from PACU at 5. Bipap in place, 30% FIO2, 12/8, RR 10 20, SpO2 >95%. ST/SR HR 90s-110, BP stable-see vital trends. Patient tolerated Bipap until 2229, then refused, placed on 2-3L NC, SpO2 88-94%, denies shortness of breath, LS clear with slight coarseness. [id number], patient was very agitated and uncomfortable, mostly r/t Toribio catheter. Oxycodone given for pain, Zofran given for heartburn and nausea, Benadryl given for skin irritation. CMS intact to Lt foot, Buddy wrap CDI. Vancomycin and Zosyn started, IV fluids given as ordered. 2225ml total UOP.
[2024-09-07 06:41] LABS: Base Excess ABG 0.1 mmol/L (-2-3); Blood Gas Collection Site Right Radial; Delivery System BiPAP; HCO3 ABG 27 mmol/L (23-27); Oxygen Saturation ABG 91 % (95-100); PCO2 ABG 51.3 mmHg (35-45); PO2 ABG 67 mmHg (80-100); Pressure Support 4; TCO2 ABG 27 mmol/L (23-27); pH ABG 7.33 (7.35-7.45)
[2024-09-07] MEDS: ASPIRIN EC 81 MG TABLET PO ×2 (08:35→20:47)
[2024-09-07] MEDS: DOCUSATE 100 MG CAPSULE PO ×2 (08:35→20:47)
[2024-09-07] MEDS: SODIUM CHLORIDE 0.9% FLUSH 10 ML IV ×2 (08:36→20:48)
[2024-09-07] MEDS: polyethylene glycoL 3350 17 GM POWD.PACK PO (08:36)
[2024-09-07] MEDS: CEFEPIME 2 GM in SODIUM CHLORIDE 0.9% 100 ML IV ×2 (08:55→20:48)
--- NOTE | 2024-09-07 11:05 | PT.IIE ---
Current Diagnoses Essential (primary) hypertension (09/05/24) Other fracture of left lower leg, initial encounter for closed fracture (09/05/24) Body mass index [BMI] 37.0-37.9, adult (09/05/24) Surgery Performed Operation Date: 09/06/24 16:45 Actual Procedures p ORIF Ankle Fracture(Left) - Ca Nieto MD Surgical History (Last Reviewed 09/05/24 @ 11:41 by Walt Ramos MD) History of lithotripsy No pertinent past surgical history Status post tonsillectomy and adenoidectomy Medical History (Last Reviewed 09/05/24 @ 11:41 by Walt Ramos MD) Bilateral leg pain Bilateral lower extremity edema Cellulitis Low back pain with sciatica Olecranon bursitis, left elbow Renal stones Right hip pain Right leg pain SOB (shortness of breath) Swelling of lower extremity Physical Therapy Inpatient Evaluation/Re-Eval M1 PT/OT-IP Prior Functional Status Start: 09/04/24 09:21 Freq: Status: Active Protocol: Document 09/07/24 11:05 AB (Rec: 09/07/24 13:13 AB [id number]) Medical Review Prior Functional Status Medical History Reviewed Yes Mobility and Gait pt stated that he was independent with all mobilities and ambulation without AD Social History Household Members none Living Arrangements RV Number of Floors (Floors) One Floor Number of Stairs To Enter/Railing? pt lives on an [place] at [place]: has 5 steps and left rail to enter Home Environment Standard Height Toilet,Tub/ Shower Additional Social History Comment pt stated that RV is very small and narrow and shower needs to be repaired; has been using the park facilities for his shower needs M2 PT-IP Current Condition Start: 09/04/24 09:21 Freq: Status: Active Protocol: Document 09/07/24 11:05 AB (Rec: 09/07/24 13:13 AB [id number]) Physical Therapy Current Condition Current Condition Evaluation Date 09/07/24 Treatment Diagnosis s/p L ankle ORIF; difficulty in walking Onset Date 09/05/24 M3 PT-IP Subjective Start: 09/04/24 09:21 Freq: Status: Active Protocol: Document 09/07/24 11:05 AB (Rec: 09/07/24 13:13 AB [id number]) Subjective Physical Therapy Visit Type Type Initial Evaluation Visit Start Time 11:05 Visit Stop Time 11:25 Number of MENTALLY IMPAIRED TEACHER Visits 0 Therapy Pain Assessment Pain When Pain Assessed At Rest Pain Present Pain Present Pain Reported Location Left ankle Scale Used pain scale not stated Pain Management Techniques Distraction,Modification of Treatment,Re-positioning, Timing of Activity with Medications M4 PT-IP Mobility and Gait Start: 09/04/24 09:21 Freq: Status: Active Protocol: Document 09/07/24 11:05 AB (Rec: 09/07/24 13:13 [id number]) PT-Bed Mobility Assessment Supine to Sit Supine to Sit Independent Sit to Supine Sit to Supine Independent PT-Transfer Assessment Sit to and From Stand Sit to and from Stand Standby Assistance,1 Person Assistance,Use of Upper Extremities Equipment Transfer Assistive Device Gait Belt,Front Wheeled Walker Orthotic/Prosthetic Devices or Brace: Yes Comments Mobility Comments pt walking back to bed using FWW with nurse. pt agreed to work with PT. obtained PLOF and home setup. O2 sat at RA: 93% (+) SOB. obtained PLOF and home set up. pt is aware of his weight bearing precaution. informed pt regarding TTWB but pt stated that he is worried he might put too much weight and that he prefers not to put weight on LLE. supine to sit mod I. sit to stand SBA and ambulated in room using FWW ~ 20 ft SBA. pt can be impulsive. pt wants to go back to bed. (+) SOB. O2 sat 88%. sit to supine mod I. call light and table placed within reach. Gait Assessment Gait Gait Assistance Required: Standby Assistance,1 Person Assist Distance (Feet) 20 Able to Maintain Weight Bearing Status Yes During Gait Assistive Devices Assistive Device Front Wheeled Walker Orthotic/Prosthetic Devices or Brace: Yes Gait Deviations General Gait Pattern Ataxic Factors Limiting Gait Function Factors Limiting Gait Function Decreased Activity Tolerance, Decreased Strength,Limited Range of Motion,Poor Balance, Poor Safety Awareness PT-Balance Assessment Sitting Balance and Reactions Static Sitting Balance Ability Normal Dynamic Sitting Balance Ability Normal Standing Balance and Reactions Static Standing Balance Ability Good Dynamic Standing Balance Ability Fair Device Used FWW M5 PT-IP Objective Assessments Start: 09/04/24 09:21 Freq: Status: Active Protocol: Document 09/04/24 10:26 MB (Rec: 09/04/24 11:04 MB [id number]) Orientation Orientation/Cognition Level of Alertness Alert Orientation Name,Age,Birthday,Month,Year, Place,Situation Language Function Ability No Deficits Noted Safety Awareness Decreased Safety Awareness Memory Description No Deficits Noted Gross Range of Motion Upper Extremity ROM Assessment Within Functional Limits Lower Extremity ROM Assessment Left Impaired Impairments Left ankle in splint foot to knee, positioned in neutral DF Strength Upper Extremity Strength Assessment Within Functional Limits Lower Extremity Strength Assessment Left Impaired Comments Strength Comments Cannot MMT Left ankle Coordination Assessment Gross Coordination Gross Coordination Impaired Sensation Assessment Comments Sensation Comments Unable to test under splint M6 PT-IP Treatment Start: 09/04/24 09:21 Freq: Status: Active Protocol: Document 09/07/24 11:05 AB (Rec: 09/07/24 13:13 AB [id number]) Physical Therapy Treatment Education Education Provided Weight Bearing Status,Safety M7 PT-IP Assessment and Plan Start: 09/04/24 09:21 Freq: Status: Active Protocol: Document 09/07/24 11:05 AB (Rec: 09/07/24 13:13 AB [id number]) PT Summary Assessment and Plan Potential Rehabilitation Potential Fair Status of Condition at Evaluation Evolving Summary Impairments Pain,ROM,Strength,Balance, Coordination,Sensation,Tone, Cognition,Bed Mobility, Transfers,Gait,Activity Tolerance Assessment Summary Pt is a 69 y/o M who sustained a L ankle fracture and underwent ORIF POD 1. pt is TTWB on LLE. pt prefers to do NWB on LLE since he said that he will tend to put too much weight on LLE. pt is modified independent with bed mobility and SBA for transfers and ambulation using FWW. pt able to maintain NWB on LLE. pt has COPD limiting current mobility. pt lives alone in an RV and has steps to enter the house but currently is not appropriate to do stair climbing given his LLE weight bearing restriction. pt main mobility hindrance at this time is the weight bearing restriction on LLE. At this time, pt's is at maximum functional mobility status with regarding to his bed mobility, transfers and ambulation considering current weight bearing restriction. No further PT needs at this time. Frequency of Treatment Frequency Of Treatment Discharge Treatment Plan Physical Therapy Treatment Plan Bed Mobility Training,Transfer Training,Gait Training, Therapeutic Exercise,Balance Retraining,Post Op Education, Discharge Planning,Hot or Cold Pack,Neuromuscular Re-ed, Coordination Retraining,Manual Therapy Weight Bearing Status Weight Bearing Status Touch Down Weight Bearing Allowed Weight Bearing Amount (enter % LLE TTWB or #) (%) Recommendations To Nursing Amount of Assist Needed Standby Assistance Discharge Recommendations PT Discharge Recommendations Home vs SNF Equipment Needed for Home Before w/c, FWW Discharge Transportation Needs at Discharge Wheelchair/Cabulance - PT assist SBA
--- NOTE | 2024-09-07 15:09 | OT.IPNOTE ---
Per staff pt having a tough day and requesting to sleep and not be bothered. To check on pt tomorrow for OT eval.
[2024-09-07] MEDS: ACETAMINOPHEN 325 MG TABLET 650 MG PO (16:45)
[2024-09-07] MEDS: VANCOMYCIN 1,000 MG in SODIUM CHLORIDE 0.9% 250 ML 250 MG IV (16:45)
[2024-09-07] MEDS: OXYCODONE IR 5 MG TABLET 10 MG PO ×2 (16:46→20:49)
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
[2024-09-07] MEDS: SENNOSIDES 8.6 MG TABLET 17.2 MG PO (20:47)
[2024-09-08] VITALS: PULSE 82; RESP 20; TEMP 36.9; O2SAT 98
[2024-09-08] MEDS: OXYCODONE IR 5 MG TABLET 10 MG PO ×3 (03:25→20:39)
[2024-09-08 04:00] VITALS: PULSE 82; RESP 25; TEMP 36.8; O2SAT 95
[2024-09-08] MEDS: VANCOMYCIN 1,000 MG in SODIUM CHLORIDE 0.9% 250 ML 250 MG IV (05:10)
[2024-09-08 05:30] LABS: Add Manual Diff / Slide Review NO; Basophils Absolute Auto 100 /uL (0-100); Basophils Percent Auto 0.6 % (0-2); Eosinophils Absolute Auto 0 /uL (0-450); Eosinophils Percent Auto 0.4 % (2-4); Hematocrit 43.6 % (41-53); Hemoglobin 14.5 g/dL (13.5-17.5); Lymphocytes Absolute Auto 1800 /uL (1100-4500); Lymphocytes Percent Auto 14.4 % (25-40); Mean Corpuscular HGB Conc 33.4 % (30-36); Mean Corpuscular Hemoglobin 30.1 PG (26-34); Mean Corpuscular Volume 90.3 fL (80-100); Monocytes Absolute Auto 1500 /uL (0-900); Monocytes Percent Auto 11.6 % (3-14); Neutrophils Absolute Auto 9100 /uL (1500-7000); Platelet Count 231 X10^3/uL (150-400); Red Blood Cell Count 4.83 X10^6/uL (4.5-5.9); White Blood Cell Count 12.5 X10^3/uL (4.5-11.0)
[2024-09-08 06:33] LABS: BUN Creatinine Ratio 22.1 (6-22); Blood Urea Nitrogen 25 mg/dL (9-20); Calcium 8.7 mg/dL (8.4-10.2); Carbon Dioxide 27 mmol/L (22-32); Chloride 103 mmol/L (98-107); Estimated Glomerular Filt Rate > 60 mL/min (>60); Glucose 108 mg/dL (80-110); HEMOLYSIS < 15 (0-50); Potassium 4.6 mmol/L (3.4-5.1); Sodium 137 mmol/L (137-145)
[2024-09-08] MEDS: polyethylene glycoL 3350 17 GM POWD.PACK PO (08:34)
[2024-09-08] MEDS: DOCUSATE 100 MG CAPSULE PO ×2 (08:34→20:41)
[2024-09-08] MEDS: DOXYCYCLINE HYCLATE 100 MG TABLET PO ×2 (08:35→20:41)
[2024-09-08] MEDS: SODIUM CHLORIDE 0.9% FLUSH 10 ML IV ×2 (08:35→20:41)
[2024-09-08] MEDS: ASPIRIN EC 81 MG TABLET PO ×2 (08:35→20:41)
[2024-09-08] MEDS: cefTRIAXone 1,000 MG in SODIUM CHLORIDE 0.9% 100 ML 200 MG IV (10:27)
--- NOTE | 2024-09-08 10:29 | OT.IP.EVAL ---
Current Diagnoses Essential (primary) hypertension (09/05/24) Other fracture of left lower leg, initial encounter for closed fracture (09/05/24) Body mass index [BMI] 37.0-37.9, adult (09/05/24) Surgery Performed Operation Date: 09/06/24 16:45 Actual Procedures p ORIF Ankle Fracture(Left) - Ca Nieto MD Past Medical History (Last Reviewed 09/05/24 @ 11:41 by Walt Ramos MD) Bilateral leg pain Bilateral lower extremity edema Cellulitis Low back pain with sciatica Olecranon bursitis, left elbow Renal stones Right hip pain Right leg pain SOB (shortness of breath) Swelling of lower extremity Surgical History (Last Reviewed 09/05/24 @ 11:41 by Walt Ramos MD) History of lithotripsy No pertinent past surgical history Status post tonsillectomy and adenoidectomy Occupational Therapy Inpatient Evaluation/Re-Eval M1 PT/OT-IP Prior Functional Status Start: 09/04/24 09:21 Freq: Status: Active Protocol: Document 09/08/24 13:04 [facility] (Rec: 09/08/24 13:30 [facility] [id number]) Medical Review Prior Functional Status Medical History Reviewed Yes Mobility and Gait pt stated that he was independent with all mobilities and ambulation without AD Activities of Daily Living and IADL's Pt states was completely independent Social History Household Members none Living Arrangements RV Number of Floors (Floors) One Floor Number of Stairs To Enter/Railing? pt lives on an RV at [place]: has 5 steps and left rail to enter Home Environment Standard Height Toilet,Tub/ Shower Additional Social History Comment pt stated that RV is very small and narrow and shower needs to be repaired; has been using the park facilities for his shower needs M2 OT-IP Current Condition Start: 09/08/24 13:02 Freq: Status: Active Protocol: Document 09/08/24 13:04 [facility] (Rec: 09/08/24 13:30 [facility] [id number]) Occupational Therapy Current Condition Current Condition Evaluation Date 09/08/24 Treatment Diagnosis S/P ORIF Left ankle fx, COPD Diagnosis Onset Date 09/05/24 M3 OT- IP Subjective and Pain Start: 09/08/24 13:02 Freq: Status: Active Protocol: Document 09/08/24 13:04 [facility] (Rec: 09/08/24 13:30 [facility] [id number]) OT- Subjective Occupational Therapy Visit Type Type Initial Evaluation Visit Start Time 10:05 Visit Stop Time 10:29 Occupational Therapy Visit Comments Patient Comments Pt agreed to talk to OT but not wanting to get up at this time. Patient/Caregiver Goals To go home. OT Pain Assessment Pain When Pain Assessed During Mobility Pain Present Pain Present Pain Reported Location Left ankle Pain Behaviors Facial Grimacing,Holding Area M4 OT- IP ADL's Start: 09/08/24 13:02 Freq: Status: Active Protocol: Document 09/08/24 13:04 [facility] (Rec: 09/08/24 13:30 [facility] [id number]) OT YWB-Gmfr-Gqzxuit General Evaluation Self-Feeding Ability Independent OT ADL-Grooming General Evaluation Grooming Ability Standby Assistance Comments OT Grooming Comments Pt able to do after set-up while seated in bed via long sitting. OT ADL-Oral Care General Eval Oral Care Ability Independent OT ADL-Dressing Comments OT Dressing Comments Spoke of dressing the LLE first and take out last. Pt has [place] splint and best to wear cut of pants or shorts. OT ADL-Toileting Comments OT Toileting Comments NOt performed. OT ADL-Bathing Comments OT Bathing Comments Not performed. M6 OT- IP Functional Cognition Start: 09/08/24 13:02 Freq: Status: Active Protocol: Document 09/08/24 13:04 [facility] (Rec: 09/08/24 13:30 [facility] [id number]) Cognitive Factors Limiting Selfcare Function Cognitive Ability Level of Alertness Alert Patient Orientation Name,Age,Birthday,Month,Date, Year,Day of Week,Place, Situation Attention Span Ability Capable of Focused Attention, Capable of Sustained Attention Ability to Follow Commands Able to Follow One Step Commands Safety Awareness Underestimates Need for Assistance Cognitive Comments Cognitive Assessment Comments Pt is a bit insistent on his care. Pt agrees that he easily gets short of breath and not able to get around much now due to his TTWB status. Pt states he does not have any friend or family that he could stay with in an environment that would be safer for the pt to follow his TTWB and possibly have a WC to be able to mobilize longer distance. OT- Vision and Hearing OT- Hearing Assessment OT- Hearing Assessment WFL OT- Vision Assessment Visual Acuity Glasses For Reading M7 OT- IP Mobility and Balance Start: 09/08/24 13:02 Freq: Status: Active Protocol: Document 09/08/24 13:04 [facility] (Rec: 09/08/24 13:30 [facility] [id number]) OT- Bed Mobility Assessment Rolling Level of Assistance Independent Supine to Sit Supine to Sit Assist Independent,Head of Bed Elevated OT-Transfer Assessment Comments Mobility Comments Pt independently able to so bed mobility with bed rail. OT- Gait Assessment Comments Gait Ability Comments Pt not wanting to get up at this time. Pt has been up and able to follow TTWB via following NWB but pt states gets easily tired due to his COPD. OT- Balance Assessment Sitting Balance and Reactions Static Sitting Balance Ability Normal Dynamic Sitting Balance Ability Good M8 OT- IP Objective Assessments Start: 09/08/24 13:02 Freq: Status: Active Protocol: Document 09/08/24 13:04 [facility] (Rec: 09/08/24 13:30 [facility] [id number]) OT Gross Range of Motion Upper Extremity Range of Motion Assessment Within Functional Limits OT Strength Upper Extremity Strength Assessment Within Functional Limits M9 OT- IP Assessment and Plan Start: 09/08/24 13:02 Freq: Status: Active Protocol: Document 09/08/24 13:04 [facility] (Rec: 09/08/24 13:30 [facility] [id number]) OT Summary Assessment and Plan Potential Rehabilitation Potential Fair Analytic Complexity at Evaluation Moderate Summary OT Impairments Pain,Balance,Functional Mobility,Dressing,Toileting, Bathing,Toilet Transfers, Shower Transfers,Activity Tolerance Progress Towards Goals Slow Progress due to Pain,Slow Progress due to Medical Issues,Slow Progress due to Activity Tolerance Assessment Summary Pt low complexity and main barriers are steps, pain, decreased activity tolerance, and home set-up. Pt will benefit from skilled rehab to work on increasing overall activity tolerance and ADL strategies and equipment needs . Goals Dressing Goal Independent Toileting Goal Independent Bathing Goal Independent Toilet Transfer Goal Independent Shower Transfer Goal Independent Days to Meet Goals 15 Frequency of Treatment Other frequency 5x/week Treatment Plan OT Treatment Plan ADL Training,Functional Mobility,Patient/Family Education,Discharge Planning Discharge Recommendations OT Discharge Recommendations SNF Rehab Other Discharge Recommendations Questionable disposition after SNF, as pt's home set-up for his TTWB for LLE. Transportation Needs at Discharge Wheelchair/Cabulance
--- NOTE | 2024-09-08 11:47 | CM.DPC ---
DCP SNF Planning: Per MD, pt making progress and can likely d/c to SNF later today vs tomorrow pending respirations and labs. Pt was moved to ICU last night due to COPD and needing bipap overnight. Pt now on room air. Per OT, pt could benefit from SNF for safety and increasing strength as he continues to be hesitant about toe-touch WB. Per PT, SNF vs Home pending progress. SW confirmed with [facility] that they can accept and have submitted for auth and SW faxed updated prog notes and [facility] still showing auth pending. Tentatively have transport set up for pt today at 1330 in case auth obtained. SW met bedside with pt and explained role and he confirms that he feels SNF needed at d/c before return to his RV and agreeable with [facility] acceptance. SW updated pt waiting on [facility] auth for SNF. [facility] previously completed in anticipation of SNF. Plan: SW to follow for plan of [facility] once [facility] auth obtained before safe return to RV. Miriam Gomez, ASSOCIATE SCHOOL PSYCHOLOGIST
[2024-09-08 12:00] VITALS: BP 114/56; PULSE 88; RESP 18; TEMP 36.7; O2SAT 95
[2024-09-08] MEDS: OXYCODONE IR 5 MG TABLET PO (15:16)
[2024-09-08] MEDS: ACETAMINOPHEN 325 MG TABLET 650 MG PO ×2 (15:17→20:40)
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
[2024-09-08 20:00] VITALS: BP 126/68; PULSE 86; RESP 18; TEMP 36.2; O2SAT 91
[2024-09-08] MEDS: SENNOSIDES 8.6 MG TABLET 17.2 MG PO (20:41)
[2024-09-09] MEDS: OXYCODONE IR 5 MG TABLET 10 MG PO (04:44)
[2024-09-09 05:16] LABS: Add Manual Diff / Slide Review NO; Basophils Absolute Auto 100 /uL (0-100); Basophils Percent Auto 0.6 % (0-2); Eosinophils Absolute Auto 200 /uL (0-450); Eosinophils Percent Auto 1.6 % (2-4); Hematocrit 43.9 % (41-53); Hemoglobin 14.6 g/dL (13.5-17.5); Lymphocytes Absolute Auto 1600 /uL (1100-4500); Mean Corpuscular HGB Conc 33.3 % (30-36); Mean Corpuscular Hemoglobin 29.9 PG (26-34); Mean Corpuscular Volume 89.8 fL (80-100); Monocytes Absolute Auto 1200 /uL (0-900); Monocytes Percent Auto 11.9 % (3-14); Neutrophils Absolute Auto 6800 /uL (1500-7000); Neutrophils Percent Auto 69.9 % (50-75); Platelet Count 250 X10^3/uL (150-400); Red Blood Cell Count 4.89 X10^6/uL (4.5-5.9); Red Cell Distribution Width 13.9 % (11.6-14.8); White Blood Cell Count 9.7 X10^3/uL (4.5-11.0)
[2024-09-09 05:28] LABS: BUN Creatinine Ratio 21.6 (6-22); Blood Urea Nitrogen 21 mg/dL (9-20); Calcium 9.1 mg/dL (8.4-10.2); Carbon Dioxide 30 mmol/L (22-32); Chloride 101 mmol/L (98-107); Estimated Glomerular Filt Rate > 60 mL/min (>60); Glucose 111 mg/dL (80-110); HEMOLYSIS < 15 (0-50); Potassium 4.4 mmol/L (3.4-5.1); Sodium 136 mmol/L (137-145)
[2024-09-09 08:00] VITALS: BP 136/72; PULSE 88; RESP 20; TEMP 36.8; O2SAT 94
[2024-09-09] MEDS: polyethylene glycoL 3350 17 GM POWD.PACK PO (08:20)
[2024-09-09] MEDS: ASPIRIN EC 81 MG TABLET PO ×2 (08:21→20:17)
[2024-09-09] MEDS: DOXYCYCLINE HYCLATE 100 MG TABLET PO ×2 (08:21→20:16)
[2024-09-09] MEDS: DOCUSATE 100 MG CAPSULE PO ×2 (08:21→20:17)
[2024-09-09] MEDS: OXYCODONE IR 5 MG TABLET PO ×2 (08:26→19:46)
[2024-09-09] MEDS: ACETAMINOPHEN 325 MG TABLET 650 MG PO ×2 (08:26→19:45)
[2024-09-09 09:10] VITALS: PULSE 75; RESP 22; O2SAT 91
[2024-09-09] MEDS: ALBUTEROL/IPRATROPIUM 3 ML AMPUL INH (09:10)
[2024-09-09] MEDS: cefTRIAXone 1,000 MG in SODIUM CHLORIDE 0.9% 100 ML 200 MG IV (09:24)
[2024-09-09] MEDS: SODIUM CHLORIDE 0.9% FLUSH 10 ML IV ×2 (09:25→20:17)
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
--- NOTE | 2024-09-09 10:34 | CM.DPNOTE ---
DCP Continued: Reviewed EMR and team rounds for pt?s medical status. At start of shift, pt was pending an insurance authorization for SNF placement. It is reported by [facility] that pt's pending authorization would have to be reviewed via [id number] between hospitalist and [facility] Fire [employer]inguisher Installer. Hospitalist was notified, CM Team sent updated clinicals to [facility]. Hospitalist completed [facility] [id number], it is reported pt was denied authorization for SNF. [facility] recommendation is [facility] with home health. DCP entered room, introduced self and role. Pt presented as guarded, back turned to this WASHING [employer] SCREENING [employer]ANT SUPERVISOR. Pt endorsed frustration about insurance denial and does not think he can return back to RV, My leg swells every time I try to move. I am anxious and stressed. I can't go back to whatever home I have like this. Pt confirmed that he would like to appeal discharge. Admin kindly walked pt through process of appeals, assist pt with calling [facility] to appeal. DCP sent referral to [facility] who is contracted with pt insurance, it is reported they can accept pt for RN, OT, HH Aide services upon discharge. Plan: Pt disputed discharge, pending insurance decision; anticipating dc 09/10 back to RV. [facility] to follow. CM Team will continue to follow for coordination of discharge plans. JUAN F Melissa
[2024-09-09 12:00] VITALS: TEMP 36.4
--- NOTE | 2024-09-09 17:23 | PM.CALLCOV.1 ---
Call Coverage Note Note Narrative of Care Provided: Patient has appealed discharge. Will continue previous care without changes. Transitioned to PO antibiotics. No need for labs tomorrow.
[2024-09-09] MEDS: SENNOSIDES 8.6 MG TABLET 17.2 MG PO (20:16)
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
[2024-09-10] MEDS: ACETAMINOPHEN 325 MG TABLET 650 MG PO ×3 (05:00→23:21)
[2024-09-10] MEDS: OXYCODONE IR 5 MG TABLET PO ×3 (05:00→13:51)
[2024-09-10] MEDS: ASPIRIN EC 81 MG TABLET PO ×2 (09:37→23:20)
[2024-09-10] MEDS: polyethylene glycoL 3350 17 GM POWD.PACK PO (09:37)
[2024-09-10] MEDS: IBUPROFEN 400 MG TABLET PO ×3 (09:37→23:22)
[2024-09-10] MEDS: CEFDINIR 300 MG CAPSULE PO ×2 (09:38→23:19)
[2024-09-10] MEDS: DOXYCYCLINE HYCLATE 100 MG TABLET PO ×2 (09:38→23:19)
[2024-09-10] MEDS: DOCUSATE 100 MG CAPSULE PO ×2 (09:38→23:20)
[2024-09-10 13:41] VITALS: BP 112/58; PULSE 84; RESP 18; TEMP 36.1; O2SAT 95
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
[2024-09-10 20:00] VITALS: BP 107/61; PULSE 80; RESP 19; O2SAT 96
[2024-09-10] MEDS: SENNOSIDES 8.6 MG TABLET 17.2 MG PO (23:20)
[2024-09-10] MEDS: OXYCODONE IR 5 MG TABLET 10 MG PO (23:21)
[2024-09-11] MEDS: IBUPROFEN 400 MG TABLET PO (06:54)
[2024-09-11] MEDS: ACETAMINOPHEN 325 MG TABLET 650 MG PO (06:54)
[2024-09-11] MEDS: OXYCODONE IR 5 MG TABLET PO (06:55)
[2024-09-11] MEDS: ASPIRIN EC 81 MG TABLET PO (08:20)
[2024-09-11] MEDS: DOCUSATE 100 MG CAPSULE PO (08:21)
[2024-09-11] MEDS: BISACODYL 5 MG TABLET PO (08:21)
[2024-09-11] MEDS: polyethylene glycoL 3350 17 GM POWD.PACK PO (08:21)
[2024-09-11] MEDS: CEFDINIR 300 MG CAPSULE PO (08:21)
[2024-09-11] MEDS: DOXYCYCLINE HYCLATE 100 MG TABLET PO (08:21)
[2024-09-11 08:47] VITALS: BP 105/71
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
--- NOTE | 2024-09-11 10:08 | PC.NURSE ---
Discharge Note Patient A&O, VSS, RA, pain well controlled with PRN medication. Patient agreeable to current discharge plan. Patient able to dress self. Patient assisted to pack all belongings. Patient reminded to diamond picker prescriptions at preferred pharmacy. Patient taken down via wheelchair to POV.
== END 2024-09-11 09:15 | disposition home health service (06) | DRG 492 ==
LOC: ED 09-04 12:20 → AC 09-04 12:36 → ICU 09-06 21:16
PROVIDERS: Hospitalist; Internal Medicine; Nurse Anesthetist, Certified Registered; Orthopaedic Surgery; Admitting Provider Internal Medicine; Emergency Provider Emergency Medicine; PCP Family Medicine; Referring Provider Emergency Medicine; Visit Provider Internal Medicine
PROC: 0QSK04Z Reposition Left Fibula with Internal Fixation Device, Open Approach (ICD-10-PCS; principal; 2024-09-06 16:45)
DX: S82.852A Displaced trimalleolar fracture of left lower leg, initial encounter for closed fracture (principal); A41.9 Sepsis, unspecified organism; J96.02 Acute respiratory failure with hypercapnia; J96.21 Acute and chronic respiratory failure with hypoxia; R65.20 Severe sepsis without septic shock; J69.0 Pneumonitis due to inhalation of food and vomit; J18.9 Pneumonia, unspecified organism; N17.9 Acute kidney failure, unspecified; J44.0 Chronic obstructive pulmonary disease with (acute) lower respiratory infection; S82.872A Displaced pilon fracture of left tibia, initial encounter for closed fracture; V28.09XA Other motorcycle driver injured in noncollision transport accident in nontraffic accident, initial encounter; Z87.891 Personal history of nicotine dependence; Z86.79 Personal history of other diseases of the circulatory system; Z22.322 Carrier or suspected carrier of Methicillin resistant Staphylococcus aureus
CPT/HCPCS: 27818; 29505; 29515; 36415; 36600; 71045; 73600; 73610; 73700; 80048; 80053; 82805; 82962; 83605; 83880; 84145; 84484; 85025; 87040; 87797; 93005; 94640; 94660; 94762; 96374; 96375; 96376; 97161; 97166; 97530; 99152; 99285; G0378; C1713; C8929; J0330; J0690; J0692; J0696; J1100; J1171; J1200; J1885; J1940; J2250; J2405; J2543; J2704; J3010; Q9957

== ENCOUNTER → 2024-10-25 13:19 | Outpatient (CLI) | payer MEDICARE, MEDICAID, SELFPAY ==
[2024-09-04 12:51] VITALS: BMI 33.0
[2024-09-06 20:33] VITALS: PULSE 100; RESP 19; O2SAT 90
--- NOTE | 2024-10-25 13:20 | DI.RAD.S_ITS ---
PROCEDURE: XR ANKLE LT MIN 3V INDICATIONS: left fracture s/p repair TECHNIQUE: 3 views of the ankle were acquired. COMPARISON: [facility], CR, XR ANKLE LT 2V, 09/04/2024, 0:42. FINDINGS: Bones: Comminuted spiral fracture of the distal fibular diaphysis has been reduced to near anatomic alignment and is transfixed by lateral plate and screws. Oblique fracture of the medial malleolar base has been root reduced to anatomic alignment and transfixed by medial plate and screws. One of the inferior screws may project through the medial tibial plafond. A fracture medial malleolar tip is age indeterminate but is non transfixed Tibiotalar and talocalcaneal joints: Normal in width and alignment . Moderate ankle effusion noted Soft tissues: No soft tissue swelling, calcification or mass. IMPRESSION: ORIF medial malleolar and distal fibular fractures in near anatomic alignment. Please see above Dictated by: Jayson Hinson M.D. on 10/26/2024 at 12:33 Approved by: Jayson Hinson M.D. on 10/26/2024 at 12:36
== END ==
PROVIDERS: PCP Family Medicine; Referring Provider Family Medicine; Visit Provider Family Medicine
DX: S82.892A Other fracture of left lower leg, initial encounter for closed fracture (principal); S81.802A Unspecified open wound, left lower leg, initial encounter; I10 Essential (primary) hypertension
CPT/HCPCS: 73610